=== PATIENT | male | born 1970 | race African-American/Black ===

== ENCOUNTER 2018-09-28 14:14 | Inpatient (IN) | payer MEDICARE, MEDICAID ==
[~2018-09-28 14:14] MED LIST: ISOVUE-370 76%-LOCM 1 ML ONE; Iopamidol 370 76% 50 ML VIAL FS ONE
[2018-09-28] MEDS ORDERED: Morphine 4 MG/ML VIAL ONE (14:50)
[2018-09-28] MEDS ORDERED: Ondansetron PF 4 MG/2 ML Vial ONE (14:50)
[2018-09-28 15:22] LABS: Mean Corpuscular HGB CONC 29.8 g/dL (32.0-36.0); Mean Corpuscular Hemoglobin 25.2 pg (27.0-31.0); Mean Corpuscular Volume 84.6 fL (78.0-98.0); Mean Platelet Volume 7.6 fL (7.4-10.4); Platelet Count 583 thou/uL (130-400); RBC Distribution Width 16.5 % (11.5-14.5); Red Blood Cell (RBC) Count 4.78 mill/uL (4.70-6.10); White Blood Cell (WBC) Count 20.8 thou/uL (4.8-10.8)
[2018-09-28 15:40] LABS: ALT (SGPT) 14 U/L (8-55); AST (SGOT) 8 U/L (5-34); Albumin 3.9 g/dL (3.5-5.0); Alkaline Phosphatase 71 U/L (40-150); Anion Gap 19 mmol/L (10-20); BUN (Urea Nitrogen) 29 mg/dL (8.9-20.6); Bilirubin, Total Less than 0.2 mg/dL (0.2-1.2); Calc. Creatinine Clearance 0 mL/min (70-130); Calcium 9.9 mg/dL (7.8-10.44); Carbon Dioxide 27 mmol/L (22-29); Chloride 103 mmol/L (98-107); Estimated GFR-MDRD 90; Glucose 146 mg/dL (70-105); Lipase Less than 4 U/L (8-78); Potassium 4.3 mmol/L (3.5-5.1); Protein, Total 8.9 g/dL (6.0-8.3); Sodium 145 mmol/L (136-145)
[2018-09-28] MEDS ORDERED: Piperacillin/Tazobactam 3.375 GM VIAL ONE (15:48)
[2018-09-28 15:49] LABS: Bilirubin Negative (Negative); Blood, Urine Small (Negative); Clarity TURBID (Clear); Glucose, Urine (Dipstick) Negative (Negative); Leukocyte Moderate (Negative); Nitrite Negative (Negative); Protein, Urine (Dipstick) 100 mg/dL (Neg-Trace); Specific Gravity, Urine 1.022 (1.002-1.036); Urobilinogen 0.2 mg/dL (0.2-1.0)
[2018-09-28 15:50] LABS: Bacteria/HPF 4+ HPF (None Seen); Hyaline Casts/LPF 0-3 HYALINE CAST LPF (0-3 Hyaline); Pathc Cast-AUWi Flag 0.29 (0-2.49); RBC/HPF 0-3 HPF (0-3); Squamous Epithelial 0-3 HPF (0-3)
[2018-09-28 15:58] LABS: Anisocytosis SLIGHT = 6-15 cells (100X) (0-5/hpf); Band 3 % (5-11); Hypochromia SLIGHT = 6-15 cells (100X) (0-5/hpf); Lymphocytes 4 % (21-51); MDiff Complete? YES; Monocytes 3 % (0-10); Neutrophil 90 % (42-75); PLT Morphology Comment Appears Increased; Target Cells SLIGHT = 2-5 cells (100X) (0-1/hpf)
[2018-09-28 16:38] LABS: Lactate 4.13 mmol/L (0.50-2.20)
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
[2018-09-28] MEDS ORDERED: Benzocaine 20% Spray 60 ML CAN ONE (18:47)
[2018-09-28] MEDS ORDERED: Lidocaine 2% Jelly 5 ML TUBE ONE (18:48)
[2018-09-28] MEDS ORDERED: Lidocaine Viscous Sol 2% 15 ml UD Cup ONE (18:49)
[2018-09-28 19:18] LABS: Lactic Acid 1.4 mmol/L (0.5-2.2)
[2018-09-28] MEDS ORDERED: Ondansetron PF 4 MG/2 ML Vial IVP PRN (20:11)
[2018-09-28] MEDS ORDERED: hydrALAZINE 20 MG/ML VIAL SLOW IVP PRN (20:11)
[2018-09-28] MEDS ORDERED: Lorazepam 2 MG/ML VIAL SLOW IVP PRN (20:11)
[2018-09-28] MEDS ORDERED: Acetaminophen 1,000 MG in Premix Bag 1 BAG IVPB PRN (20:13)
[2018-09-28] MEDS ORDERED: Lactated Ringer's 1,000 ML IV SCH (20:30)
[2018-09-28 20:33] LABS: Lactic Acid 1.4 mmol/L (0.5-2.2)
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
[2018-09-28] MEDS: Sodium Chloride 0.45% 1,000 ML IV SCH (23:13)
[2018-09-28] MEDS: Enoxaparin Sodium 40 MG/0.4 ML SYRINGE SC SCH (23:13)
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
[2018-09-29] MEDS: Sodium Chloride 0.45% 1,000 ML IV SCH ×2 (05:54→13:44)
[2018-09-29 06:30] LABS: ALT (SGPT) 9 U/L (8-55); AST (SGOT) 8 U/L (5-34); Albumin 2.8 g/dL (3.5-5.0); Alkaline Phosphatase 53 U/L (40-150); Anion Gap 10 mmol/L (10-20); BUN (Urea Nitrogen) 22 mg/dL (8.9-20.6); Bilirubin, Total 0.2 mg/dL (0.2-1.2); Calc. Creatinine Clearance 111 mL/min (70-130); Calcium 8.3 mg/dL (7.8-10.44); Carbon Dioxide 36 mmol/L (22-29); Chloride 105 mmol/L (98-107); Estimated GFR-MDRD Greater than 90; Globulin 3.7 g/dL (2.4-3.5); Glucose 100 mg/dL (70-105); Potassium 3.5 mmol/L (3.5-5.1); Protein, Total 6.5 g/dL (6.0-8.3); Sodium 147 mmol/L (136-145)
[2018-09-29 06:41] LABS: #Eosinphils 0.1 thou/uL (0.0-0.7); #Lymphocytes 1.9 thou/uL (1.20-3.40); #Monocytes 1.1 thou/uL (0.11-0.59); #Neutrophils 12.9 thou/uL (1.40-6.50); %Basophils 0.2 % (0.0-1.0); %Eosinophils 0.5 % (0.0-10.0); %Monocytes 7.1 % (0.0-10.0); %Neutrophils 80.2 % (42.0-75.0); Hemoglobin 8.9 g/dL (14.0-18.0); Mean Corpuscular HGB CONC 29.8 g/dL (32.0-36.0); Mean Corpuscular Hemoglobin 24.6 pg (27.0-31.0); Mean Corpuscular Volume 82.7 fL (78.0-98.0); Mean Platelet Volume 7.4 fL (7.4-10.4); Platelet Count 551 thou/uL (130-400); RBC Distribution Width 16.2 % (11.5-14.5); Red Blood Cell (RBC) Count 3.61 mill/uL (4.70-6.10); White Blood Cell (WBC) Count 16.1 thou/uL (4.8-10.8)
[2018-09-29] MEDS: Pantoprazole 40 MG VIAL IVP SCH (08:13)
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
[2018-09-29] MEDS ORDERED: Vancomycin HCl 1 GM in Premix Bag 1 BAG IVPB SCH (13:00)
[2018-09-29 13:52] VITALS: BMI 19.4
[2018-09-29] MEDS: Piperacillin/Tazobactam 3.375 GM in Sodium Chloride 0.9% 100 ML IVPB SCH (17:40)
--- NOTE | 2018-09-29 21:26 | PRG ---
DATE OF SERVICE: 09/29/2018 Mr. Webber is doing well today. OBJECTIVE: VITAL SIGNS: 97.6, 87, 131/81. He feels better after having the NG tube placed. NG tube has evacua tien 3.1 liters overnight. Urine output 550 mL. LUNGS: Clear to auscultation. CARDIAC: Regular rate and rhythm without murmur. ABDOMEN: Softer, much less distended, diminished bowel sounds. X-rays abdominal revealed resolution of small bowel distention. LABORATORY: White count is decreased to 16 from 20,000, hemoglobin stable at 8.9 after hydration. S odium 147, potassium 3.5, BUN 22 down from 29, after hydration. Lactic acid has normalized. Urine c ultures revealed gram negative jil, nonhemolytic strep and blood cultures 2 of 2 Staphylococcus aureu s. He has been started on Zosyn and vancomycin ordered after acknowledgement of positive GPC bactere filomena. ASSESSMENT AND PLAN: 1. Suspect ileus secondary to urinary tract infection, improving. No surgical indication at this ti me. Continue NG tube. Hopefully, can remove tomorrow. 2. Neurogenic bladder with in and out catheterization as required. Patient is performing home Soni catheter present. Await ID identification to adjust antibiotics. Consider bacteremia and neurogeni c bladder with history of difficult to control urinary tract infections. We will consult Infectious Disease, Dr. Maria. We will await his recommendations as far as antibiotics. Await GI function and consider removal of nasogastric tube tomorrow, depending on output and GI function. I do not think G astrografin small bowel follow through as necessary. 3. Chronic decubitus problems with sacral wounds, chronic. No immediate indication. Await In fectious Disease input.
[2018-09-29] MEDS: Enoxaparin Sodium 40 MG/0.4 ML SYRINGE SC SCH (21:38)
[2018-09-29] MEDS: Vancomycin HCl 1 GM in Premix Bag 1 BAG IVPB SCH (21:38)
[2018-09-30] MEDS: Piperacillin/Tazobactam 3.375 GM in Sodium Chloride 0.9% 100 ML IVPB SCH ×4 (00:41→17:26)
[2018-09-30] MEDS ORDERED: Vancomycin HCl 1 GM in Premix Bag 1 BAG IVPB SCH (02:00)
[2018-09-30] MEDS: Sodium Chloride 0.45% 1,000 ML IV SCH ×3 (04:57→13:23)
[2018-09-30] MEDS: Vancomycin HCl 1 GM in Premix Bag 1 BAG IVPB SCH ×4 (04:57→21:32)
[2018-09-30 05:51] LABS: Anion Gap 12 mmol/L (10-20); BUN (Urea Nitrogen) 18 mg/dL (8.9-20.6); Calc. Creatinine Clearance 109 mL/min (70-130); Calcium 7.8 mg/dL (7.8-10.44); Carbon Dioxide 31 mmol/L (22-29); Chloride 105 mmol/L (98-107); Estimated GFR-MDRD Greater than 90; Glucose 81 mg/dL (70-105); Potassium 3.3 mmol/L (3.5-5.1); Sodium 145 mmol/L (136-145)
[2018-09-30 05:54] LABS: #Basophils 0.1 thou/uL (0.0-0.2); #Eosinphils 0.2 thou/uL (0.0-0.7); #Lymphocytes 2.1 thou/uL (1.20-3.40); #Neutrophils 5.8 thou/uL (1.40-6.50); %Basophils 0.9 % (0.0-1.0); %Eosinophils 1.9 % (0.0-10.0); %Lymphocytes 22.6 % (21.0-51.0); %Monocytes 11.2 % (0.0-10.0); %Neutrophils 63.4 % (42.0-75.0); Mean Corpuscular HGB CONC 29.2 g/dL (32.0-36.0); Mean Corpuscular Hemoglobin 24.3 pg (27.0-31.0); Mean Corpuscular Volume 83.4 fL (78.0-98.0); Mean Platelet Volume 7.1 fL (7.4-10.4); PLT Morphology Comment Appears Increased; Platelet Count 545 thou/uL (130-400); RBC Distribution Width 16.2 % (11.5-14.5); Red Blood Cell (RBC) Count 3.72 mill/uL (4.70-6.10); White Blood Cell (WBC) Count 9.2 thou/uL (4.8-10.8)
[2018-09-30] MEDS: Pantoprazole 40 MG VIAL IVP SCH (08:16)
[2018-09-30] MEDS ORDERED: MD-Gastroview 120 ML BOT ONE (10:40)
[2018-09-30 14:30] LABS: Vancomycin, Trough 18.1 ug/mL
--- NOTE | 2018-09-30 14:33 | RAD ---
SMALL BOWEL SERIES: HISTORY: Small bowel obstruction. FINDINGS: The kier boiler film demonstrates contrast in the transverse and right colon. A nasogastric tube is seen w ith tip in the distal stomach. Serial imaging was performed after installation of Gastrografin in the stomach NG tube. The small pramod wel loops are not abnormally dilated. There is normal transit of contrast of the small bowel loops i nto the colon and rectum by 2-1/2 hours. IMPRESSION: No evidence of high-grade bowel obstruction. POS: [facility]
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
[2018-09-30] MEDS: Enoxaparin Sodium 40 MG/0.4 ML SYRINGE SC SCH (21:32)
[2018-09-30] MEDS: clonazePAM 1 MG TAB PO PRN (22:12)
[2018-10-01] MEDS: Piperacillin/Tazobactam 3.375 GM in Sodium Chloride 0.9% 100 ML IVPB SCH ×4 (02:18→20:38)
[2018-10-01] MEDS: Sodium Chloride 0.45% 1,000 ML IV SCH ×2 (07:50→09:49)
[2018-10-01] MEDS: Vancomycin HCl 1 GM in Premix Bag 1 BAG IVPB SCH ×2 (07:56→14:51)
[2018-10-01] MEDS: Polyethylene Glycol 3350 17 GM Packet PO SCH (09:01)
[2018-10-01] MEDS: Pantoprazole 40 MG VIAL IVP SCH (09:01)
[2018-10-01] MEDS: clonazePAM 1 MG TAB PO PRN ×2 (10:10→21:07)
--- NOTE | 2018-10-01 11:58 | PQF ---
CLINICAL DOCUMENTATION IMPROVEMENT CLARIFICATION FORM: ICD-10 Updated PLEASE DO AN ADDENDUM TO THE PROGRESS NOTE WITH ANY DOCUMENTATION UPDATES OR ADDITIONS AND CARRY THROUGH TO DC SUMMARY. THANK YOU. DATE: 10/01/18 ATTN: Dr. Og Please exercise your independent, professional judgment in responding to the clarification form. Clinical indicators are provided on the bottom of this form for your review Please check appropriate box(s): [ ] Urinary Tract Infection related to intermittent self-catheterization [ ] Urinary Tract Infection not related to intermittent self-catheterization. [ ] Urinary Tract Infection related to: [ ] Other diagnosis [ ] Unable to determine In addition, please specify: Present on Admission (POA): [ ] Yes [ ] No [ ] Unable to determine For continuity of documentation, please document condition throughout progress notes and discharge summary. Thank You. CLINICAL INDICATORS - SIGNS / SYMPTOMS / LABS PN 09/29: URINE CULTURES REVEALED GRAM NEGATIVE CARMINE, NONHEMOLYTIC STREP PN 09/29: SUSPECT ILEUS SECONDARY TO URINARY TRACT INFECTION, IMPROVING. RISKS: H&P 09/28: PARAPLEGIC. PN 09/29: NEUROGENIC BLADDER WITH IN & OUT CATHETERIZATION REQUIRED. CHRONIC DECUBITUS PROBLEMS. ID CONSULT 09/30: THE PT MANAGES HIS NEUROGENIC BLADDER W/ THIS INTERMITTENT SELF- CATHETERIZATION, USUALLY 5-6 TIMES A DAY. TREATMENT: ORDER 09/29 FOR IV ZOSYN AND IV VANCOMYCIN ID CONSULT ORDER 10/01: URINE CATH : STRAIGHT PRN Thank you, Kimberley (This form is maintained as a part of the permanent medical record) 2014 [employer] All Rights Reserved Kimberley Sims RN, BSN [email or web address] Office: [phone] [facility]
--- NOTE | 2018-10-01 13:55 | PRG ---
DATE OF SERVICE: 10/01/2018 Иван Webber is tolerating his diet. He is having bowel movements. He most likely has an ileus sec ondary to urinary tract infection. Apparently, the patient is not caring well for himself at home. He exhibits signs of malnourishment. Nursing and manager of case management have made efforts to contact the patien t's mother. Efforts are being made to assign him to an LTAC or assisted care living due to his deep decubiti, malnourishment, inadequate mobility, lack of in and out self-caths, questionable . Als o, I am waiting on Dr. Maria. We also are awaiting cultures to define sensitivities for his urine cu lture to determine most appropriate care, oral or IV antibiotics. The patient had a positive bactere filomena, probably a contaminant. Awaiting Dr. Maria' final assessment.
[2018-10-01 14:21] LABS: Vancomycin, Trough 33.9 ug/mL
[2018-10-01] MEDS: Enoxaparin Sodium 40 MG/0.4 ML SYRINGE SC SCH (20:38)
[2018-10-02] MEDS: Sodium Chloride 0.45% 1,000 ML IV SCH ×3 (00:32→17:05)
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
[2018-10-02 01:30] LABS: Vancomycin, Random 20.1 ug/mL (See Comment)
[2018-10-02] MEDS ORDERED: Vancomycin HCl 1 GM in Premix Bag 1 BAG IVPB SCH (02:00)
[2018-10-02] MEDS: Piperacillin/Tazobactam 3.375 GM in Sodium Chloride 0.9% 100 ML IVPB SCH ×4 (02:16→20:43)
[2018-10-02] MEDS: Vancomycin HCl 1 GM in Premix Bag 1 BAG IVPB SCH ×2 (04:43→17:16)
[2018-10-02] MEDS: Polyethylene Glycol 3350 17 GM Packet PO SCH (07:59)
[2018-10-02] MEDS: Pantoprazole 40 MG VIAL IVP SCH (07:59)
--- NOTE | 2018-10-02 12:24 | PQF ---
CLINICAL DOCUMENTATION IMPROVEMENT CLARIFICATION FORM: ICD-10 Updated PLEASE DO AN ADDENDUM TO THE PROGRESS NOTE WITH ANY DOCUMENTATION UPDATES OR ADDITIONS AND CARRY THROUGH TO DC SUMMARY. THANK YOU. DATE: 10/01/18 ATTN: Dr. Og Please exercise your independent, professional judgment in responding to the clarification form. Clinical indicators are provided on the bottom of this form for your review Please check appropriate box(s): [ ] Urinary Tract Infection related to intermittent self-catheterization [ ] Urinary Tract Infection not related to intermittent self-catheterization. [ ] Urinary Tract Infection related to: [ ] Other diagnosis [ ] Unable to determine In addition, please specify: Present on Admission (POA): [ ] Yes [ ] No [ ] Unable to determine For continuity of documentation, please document condition throughout progress notes and discharge summary. Thank You. CLINICAL INDICATORS - SIGNS / SYMPTOMS / LABS PN 09/29: URINE CULTURES REVEALED GRAM NEGATIVE CARMINE, NONHEMOLYTIC STREP PN 09/29: SUSPECT ILEUS SECONDARY TO URINARY TRACT INFECTION, IMPROVING. RISKS: H&P 09/28: PARAPLEGIC. PN 09/29: NEUROGENIC BLADDER WITH IN & OUT CATHETERIZATION REQUIRED. CHRONIC DECUBITUS PROBLEMS. ID CONSULT 09/30: THE PT MANAGES HIS NEUROGENIC BLADDER WITH THIS INTERMITTENT SELF-CATHETERIZATION, USUALLY 5-6 TIMES A DAY. TREATMENT: ORDER 09/29 FOR IV ZOSYN AND IV VANCOMYCIN ID CONSULT ORDER 10/01: URINE CATH : STRAIGHT PRN (This form is maintained as a part of the permanent medical record) 2014 [employer] All Rights Reserved Kimberley Sims RN, BSN [email or web address] Office: [phone] [facility]
[2018-10-02] MEDS: Enoxaparin Sodium 40 MG/0.4 ML SYRINGE SC SCH (20:44)
[2018-10-02] MEDS: clonazePAM 1 MG TAB PO PRN (20:52)
[2018-10-03] MEDS: Piperacillin/Tazobactam 3.375 GM in Sodium Chloride 0.9% 100 ML IVPB SCH ×2 (01:25→09:08)
[2018-10-03] MEDS: Vancomycin HCl 1 GM in Premix Bag 1 BAG IVPB SCH (04:37)
[2018-10-03] MEDS: clonazePAM 1 MG TAB PO PRN ×2 (05:45→11:12)
[2018-10-03] MEDS: Polyethylene Glycol 3350 17 GM Packet PO SCH (09:08)
[2018-10-03 10:59] VITALS: BP 151/98; TEMP 98.7
--- NOTE | 2018-10-03 13:48 | PRG ---
DATE OF SERVICE: 10/03/2018 SUBJECTIVE: Иван Webber is doing well today. He has tolerated his diet. Dr. Maria has decided to put him on meropenem 1 gram q.8 hours through a PICC line. The patient was reluctant to have the PI CC line, but after further discussion, educating him as to his UTI causing his ileus, and the zachio holdenle significant positive blood cultures, he agreed and PICC line was placed. OBJECTIVE: LUNGS: Clear to auscultation. CARDIAC: Regular rate and rhythm without murmur, rub, or gallop. ABDOMEN: Soft, nontender. PLAN: Transfer to LTAC today to resume meropenem and work on reconditioning and education as far as straight cathing and address his decubitus ulcers and living situation.
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
--- NOTE | 2018-10-03 16:13 | SPC ---
ULTRASOUND GUIDED LEFT UPPER EXTREMITY PICC PLACEMENT: DATE: 10/03/2018. HISTORY: In need of vascular access. FINDINGS: Informed consent obtained prior to the procedure. Left antecubital fossa is prepped and draped in no rmal sterile fashion. The skin overlying the left basilic vein is anesthetized with 1% buffered Lido wolf. With sonographic guidance, vascular access is obtained via the left basilic vein and an 0.018 wire is advanced to the IVC and then subsequently retracted to the cavoatrial junction with an intra vascular length calculated at 45 cm. The PICC was cut accordingly. The needle was removed and repla jose with a peelaway sheath. The PICC is advanced over the wire. The wire and peelaway sheath were r emoved. The tip of the catheter overlies the cavoatrial junction. The port flushes well and the cat heter is ready for use. IMPRESSION: Successful ultrasound-guided left upper extremity PICC placement as above. POS: [facility]
--- NOTE | 2018-10-04 23:07 | EKG ---
Test Reason : Blood Pressure : / mmHG Vent. Rate : 111 BPM Atrial Rate : 111 BPM P-R Int : 116 ms QRS Dur : 084 ms QT Int : 342 ms P-R-T Axes : 072 081 045 degrees QTc Int : 465 ms Sinus tachycardia Otherwise normal ECG Confirmed by RAFAEL CHRISTINE ([id number]), book or script editor ALISON FONTAINE ([id number]) on 10/04/2018 11:06:56 PM Referred By: Confirmed By:RAFAEL CHRISTINE
--- NOTE | 2018-10-07 08:51 | PQF ---
ANDRES ZIMMERMAN RICHARD D MD [id number] CLINICAL DOCUMENTATION IMPROVEMENT CLARIFICATION FORM: ICD-10 Updated PLEASE DO AN ADDENDUM TO THE PROGRESS NOTE WITH ANY DOCUMENTATION UPDATES OR ADDITIONS AND CARRY THROUGH TO DC SUMMARY. THANK YOU. DATE: 10/01/18 ATTN: Dr. Og Please exercise your independent, professional judgment in responding to the clarification form. Clinical indicators are provided on the bottom of this form for your review Please check appropriate box(s): [ ] Urinary Tract Infection related to intermittent self-catheterization [ ] Urinary Tract Infection not related to intermittent self-catheterization. [ ] Urinary Tract Infection related to: [ ] Other diagnosis [ ] Unable to determine In addition, please specify: Present on Admission (POA): [ ] Yes [ ] No [ ] Unable to determine For continuity of documentation, please document condition throughout progress notes and discharge summary. Thank You. CLINICAL INDICATORS - SIGNS / SYMPTOMS / LABS PN 09/29: URINE CULTURES REVEALED GRAM NEGATIVE CARMINE, NONHEMOLYTIC STREP PN 09/29: SUSPECT ILEUS SECONDARY TO URINARY TRACT INFECTION, IMPROVING. RISKS: H&P 09/28: PARAPLEGIC. PN 09/29: NEUROGENIC BLADDER WITH IN & OUT CATHETERIZATION REQUIRED. CHRONIC DECUBITUS PROBLEMS. ID CONSULT 09/30: THE PT MANAGES HIS NEUROGENIC BLADDER WITH THIS INTERMITTENT SELF-CATHETERIZATION, USUALLY 5-6 TIMES A DAY. TREATMENT: ORDER 09/29 FOR IV ZOSYN AND IV VANCOMYCIN ID CONSULT ORDER 10/01: URINE CATH : STRAIGHT PRN THANK YOU, KIMBERLEY (This form is maintained as a part of the permanent medical record) 2015 [employer], [employer]. All Rights Reserved Kimberley Sims RN, BSN [email or web address] Office: [phone] [facility]
== END 2018-10-03 12:54 | DRG 698 ==
LOC: ERS 14:14 → SJJU 18:10
PROVIDERS: ADMIT Specialist; ATTEND Specialist
PROC: 02HV33Z Insertion of Infusion Device into Superior Vena Cava, Percutaneous Approach (ICD-10-PCS; principal; 2018-10-03)
DX: T83.511A Infection and inflammatory reaction due to indwelling urethral catheter, initial encounter (principal); L89.313 Pressure ulcer of right buttock, stage 3; L89.323 Pressure ulcer of left buttock, stage 3; K56.7 Ileus, unspecified; G82.21 Paraplegia, complete; E46 Unspecified protein-calorie malnutrition; Z68.1 Body mass index [BMI] 19.9 or less, adult; N39.0 Urinary tract infection, site not specified; L89.151 Pressure ulcer of sacral region, stage 1; B95.7 Other staphylococcus as the cause of diseases classified elsewhere; B95.4 Other streptococcus as the cause of diseases classified elsewhere; E86.0 Dehydration; N31.9 Neuromuscular dysfunction of bladder, unspecified; F79 Unspecified intellectual disabilities; Y84.6 Urinary catheterization as the cause of abnormal reaction of the patient, or of later complication, without mention of misadventure at the time of the procedure
CPT/HCPCS: 36415; 36569; 51702; 71045; 74019; 74177; 74250; 80048; 80053; 80202; 81003; 81015; 83605; 83690; 84134; 85025; 87040; 87077; 87086; 87149; 87186; 93005; 96361; 96365; 96375; C1751; C9113; G8978-GP-CJ; G8979-GP-CI; G8987-GO-CJ; G8988-GO-CI; J1650; J2270; J2405; J2543; J3370; J7050; J7120

== ENCOUNTER 2019-08-07 15:27 | Emergency (ER) | payer MEDICARE, MEDICAID | END 2019-08-07 18:35 | disposition home or self-care (01) | LOC: ERS 15:27 | DX: H10.021 Other mucopurulent conjunctivitis, right eye (principal); I10 Essential (primary) hypertension; F41.9 Anxiety disorder, unspecified; F17.210 Nicotine dependence, cigarettes, uncomplicated; Z87.440 Personal history of urinary (tract) infections; Z79.899 Other long term (current) drug therapy | CPT/HCPCS: 99282 ==

== ENCOUNTER 2019-09-10 15:50 | Outpatient (CLI) | payer MEDICARE, MEDICAID ==
[2019-09-10] MEDS ORDERED: Sodium Chloride 0.9% 15 ML NEB ONE (18:00)
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
== END 2019-09-10 15:51 | disposition home or self-care (01) ==
LOC: WCC 15:50
PROVIDERS: ATTEND Family Medicine
DX: L89.321 Pressure ulcer of left buttock, stage 1 (principal)
CPT/HCPCS: 11042; 99203; A4218; G0463

== ENCOUNTER 2021-09-14 13:22 | Inpatient (IN) | payer MEDICARE, MEDICAID ==
[2021-09-14] MEDS ORDERED: cefTRIAXone\\ROCEPHIN 2 GM VIAL ONE (13:42)
[2021-09-14 14:31] LABS: Hemoglobin 13.4 g/dL (14.0-18.0); Mean Corpuscular HGB CONC 30.9 g/dL (32.0-36.0); Mean Corpuscular Hemoglobin 30.5 pg (27.0-31.0); Mean Corpuscular Volume 98.6 fL (78.0-98.0); Mean Platelet Volume 7.5 fL (7.4-10.4); Platelet Count 266 thou/uL (130-400); Red Blood Cell (RBC) Count 4.41 mill/uL (4.70-6.10); White Blood Cell (WBC) Count 12.1 thou/uL (4.8-10.8)
[2021-09-14 14:42] LABS: INR-International Normal Ratio 1.2; Prothrombin Time 15.3 sec (12.0-14.7)
[2021-09-14 14:43] LABS: PTT 39.6 sec (22.9-36.1)
[2021-09-14 14:48] LABS: Band 2 % (5-11); Lymphocytes 8 % (21-51); MDiff Complete? YES; Monocytes 6 % (0-10); Neutrophil 84 % (42-75); Platelet Morphology Comment Appears Adequate; RBC Morphology Normal
[2021-09-14 14:56] LABS: ALT (SGPT) 12 U/L (8-55); AST (SGOT) 13 U/L (5-34); Albumin 2.9 g/dL (3.5-5.0); Alkaline Phosphatase 81 U/L (40-110); Anion Gap 11 mmol/L (10-20); BUN (Urea Nitrogen) 11 mg/dL (8.9-20.6); Bilirubin, Total 0.4 mg/dL (0.2-1.2); Calc. Creatinine Clearance 0 mL/min (70-130); Calcium 7.7 mg/dL (7.8-10.44); Carbon Dioxide 27 mmol/L (22-29); Chloride 102 mmol/L (98-107); Globulin 2.7 g/dL (2.4-3.5); Glucose 167 mg/dL (70-105); Potassium 3.7 mmol/L (3.5-5.1); Protein, Total 5.6 g/dL (6.0-8.3); Sodium 136 mmol/L (136-145)
[2021-09-14 15:08] LABS: Bacteria/HPF 4+ HPF (None Seen); Bilirubin Negative (Negative); Blood, Urine 3+ (Negative); Clarity Turbid (Clear); Glucose, Urine (Dipstick) Normal (Negative); Ketone, Urine Negative (Negative); Leukocyte 500 Leu/uL (Negative); Nitrite Negative (Negative); Protein, Urine (Dipstick) 100 mg/dL (Neg-Trace); Specific Gravity, Urine 1.017 (1.002-1.036); Squamous Epithelial 0-3 HPF (0-3); Urobilinogen Normal mg/dL (Less than 2); WBC/HPF Greater than 50 HPF (0-3)
[2021-09-14 15:09] LABS: RBC/HPF 21-50 HPF (0-3)
[2021-09-14] MEDS ORDERED: Senokot S 8.6-50 MG TAB PO PRN (16:11)
[2021-09-14] MEDS ORDERED: Ondansetron PF 4 MG/2 ML Vial IVP PRN (16:11)
[2021-09-14] MEDS ORDERED: Enoxaparin Sodium 40 MG/0.4 ML SYRINGE SC SCH (16:15)
[2021-09-14] MEDS ORDERED: hydrALAZINE 20 MG/ML VIAL SLOW IVP PRN (16:45)
[2021-09-14] MEDS ORDERED: MEROPENEM 1 GM/50 ML 1 GM in Premix Bag 1 BAG IVPB SCH ×2 (17:00→18:45)
[2021-09-14 17:26] LABS: Lactic Acid 1.4 mmol/L (0.5-2.2)
[2021-09-14 17:53] VITALS: BMI 21.5
[2021-09-14] MEDS: MEROPENEM 1 GM/50 ML 1 GM in Premix Bag 1 BAG IVPB SCH ×2 (18:00→18:01)
[2021-09-14] MEDS: Acetaminophen 325 MG TAB PO PRN ×2 (18:05→22:35)
[2021-09-14] MEDS: Sodium Chloride 0.9% 1,000 ML IV SCH (18:06)
[2021-09-14] MEDS ORDERED: FLU VACC QS2021-22(6MOS UP)/PF 60 MCG/0.5 ML SYRINGE IM ONE (18:30)
[2021-09-14] MEDS ORDERED: Meropenem 1 GM in Sodium Chloride 0.9% 100 ML IVPB SCH (22:00)
[2021-09-15] MEDS ORDERED: MEROPENEM 1 GM/50 ML 1 GM in Premix Bag 1 BAG IVPB SCH (02:00)
[2021-09-15] MEDS: Sodium Chloride 0.9% 1,000 ML IV SCH ×3 (03:24→14:50)
[2021-09-15] MEDS: Acetaminophen 325 MG TAB PO PRN ×2 (04:19→16:20)
[2021-09-15] MEDS: MEROPENEM 1 GM/50 ML 1 GM in Premix Bag 1 BAG IVPB SCH ×3 (04:23→19:46)
[2021-09-15 07:07] LABS: Mean Corpuscular Hemoglobin 32.6 pg (27.0-31.0); Mean Corpuscular Volume 98.6 fL (78.0-98.0); Mean Platelet Volume 7.4 fL (7.4-10.4); Platelet Count 252 thou/uL (130-400); RBC Distribution Width 13.1 % (11.5-14.5); Red Blood Cell (RBC) Count 3.98 mill/uL (4.70-6.10)
[2021-09-15 07:30] LABS: Anion Gap 13 mmol/L (10-20); BUN (Urea Nitrogen) 11 mg/dL (8.9-20.6); Calc. Creatinine Clearance 109 mL/min (70-130); Calcium 7.7 mg/dL (7.8-10.44); Carbon Dioxide 22 mmol/L (22-29); Chloride 108 mmol/L (98-107); Glucose 110 mg/dL (70-105); Potassium 4.3 mmol/L (3.5-5.1); Sodium 139 mmol/L (136-145)
[2021-09-15 08:18] LABS: Band 5 % (5-11); Eosinophils 3 % (0-10); Lymphocytes 17 % (21-51); MDiff Complete? YES; Monocytes 11 % (0-10); Neutrophil 64 % (42-75); RBC Morphology Normal
[2021-09-15] MEDS: Enoxaparin Sodium 40 MG/0.4 ML SYRINGE SC SCH (08:38)
[2021-09-15] MEDS: Polyethylene Glycol 3350 17 GM Packet PO SCH (08:39)
[2021-09-15] MEDS ORDERED: Labetalol HCl 100 MG/20 ML VIAL SLOW IVP PRN (11:39)
[2021-09-15] MEDS ORDERED: Amlodipine 5 MG TAB PO SCH (11:45)
[2021-09-15 12:30] LABS: SARS-CoV-2 PCR by NAA Not Detected (NotDetected)
[2021-09-15] MEDS: clonazePAM 1 MG TAB PO SCH (22:16)
[2021-09-16] MEDS: Bisacodyl 10 MG SUPP PR SCH (00:01)
[2021-09-16] MEDS: Acetaminophen 325 MG TAB PO PRN (00:08)
[2021-09-16] MEDS: Sodium Chloride 0.9% 1,000 ML IV SCH ×6 (00:11→22:10)
[2021-09-16] MEDS: MEROPENEM 1 GM/50 ML 1 GM in Premix Bag 1 BAG IVPB SCH ×3 (05:07→22:04)
[2021-09-16 06:58] LABS: Band 10 % (5-11); Hemoglobin 12.7 g/dL (14.0-18.0); Hypochromia SLIGHT = 6-15 cells (100X) (0-5/hpf); Lymphocytes 15 % (21-51); MDiff Complete? YES; Mean Corpuscular HGB CONC 31.6 g/dL (32.0-36.0); Mean Corpuscular Hemoglobin 31.3 pg (27.0-31.0); Mean Corpuscular Volume 98.9 fL (78.0-98.0); Mean Platelet Volume 7.6 fL (7.4-10.4); Monocytes 18 % (0-10); Neutrophil 55 % (42-75); Platelet Count 277 thou/uL (130-400); Platelet Morphology Comment Appears Adequate; RBC Distribution Width 13.2 % (11.5-14.5); Reactive Lymphocytes 2 % (0-10); Red Blood Cell (RBC) Count 4.06 mill/uL (4.70-6.10); White Blood Cell (WBC) Count 9.8 thou/uL (4.8-10.8)
[2021-09-16 07:07] LABS: Anion Gap 8 mmol/L (10-20); BUN (Urea Nitrogen) 10 mg/dL (8.9-20.6); Calc. Creatinine Clearance 117 mL/min (70-130); Calcium 7.9 mg/dL (7.8-10.44); Carbon Dioxide 25 mmol/L (22-29); Chloride 109 mmol/L (98-107); Glucose 72 mg/dL (70-105); Potassium 4.4 mmol/L (3.5-5.1); Sodium 138 mmol/L (136-145)
[2021-09-16] MEDS: Enoxaparin Sodium 40 MG/0.4 ML SYRINGE SC SCH (08:34)
[2021-09-16] MEDS: Polyethylene Glycol 3350 17 GM Packet PO SCH (08:34)
[2021-09-16] MEDS: clonazePAM 1 MG TAB PO SCH ×3 (08:35→22:03)
[2021-09-17] MEDS: hydrALAZINE 20 MG/ML VIAL SLOW IVP PRN (05:13)
[2021-09-17] MEDS: MEROPENEM 1 GM/50 ML 1 GM in Premix Bag 1 BAG IVPB SCH ×3 (05:13→22:36)
[2021-09-17 06:34] LABS: Anion Gap 12 mmol/L (10-20); BUN (Urea Nitrogen) 10 mg/dL (8.9-20.6); Calc. Creatinine Clearance 117 mL/min (70-130); Calcium 7.9 mg/dL (7.8-10.44); Carbon Dioxide 25 mmol/L (22-29); Chloride 107 mmol/L (98-107); Glucose 102 mg/dL (70-105); Potassium 4.5 mmol/L (3.5-5.1); Sodium 139 mmol/L (136-145)
[2021-09-17 06:58] LABS: Band 2 % (5-11); Eosinophils 4 % (0-10); Hemoglobin 12.6 g/dL (14.0-18.0); Lymphocytes 21 % (21-51); MDiff Complete? YES; Mean Corpuscular HGB CONC 32.1 g/dL (32.0-36.0); Mean Corpuscular Hemoglobin 31.4 pg (27.0-31.0); Mean Corpuscular Volume 97.6 fL (78.0-98.0); Mean Platelet Volume 7.2 fL (7.4-10.4); Monocytes 12 % (0-10); Neutrophil 57 % (42-75); Platelet Count 279 thou/uL (130-400); Platelet Morphology Comment Appears Adequate; RBC Distribution Width 13.1 % (11.5-14.5); RBC Morphology Normal; Reactive Lymphocytes 4 % (0-10); Red Blood Cell (RBC) Count 4.02 mill/uL (4.70-6.10)
[2021-09-17] MEDS: Sodium Chloride 0.9% 1,000 ML IV SCH ×2 (07:13→18:39)
[2021-09-17] MEDS: Enoxaparin Sodium 40 MG/0.4 ML SYRINGE SC SCH (09:00)
[2021-09-17] MEDS: clonazePAM 1 MG TAB PO SCH ×3 (09:00→22:37)
[2021-09-17] MEDS: Polyethylene Glycol 3350 17 GM Packet PO SCH (09:00)
[2021-09-17] MEDS: Bisacodyl 10 MG SUPP PR SCH (22:42)
[2021-09-18] MEDS: MEROPENEM 1 GM/50 ML 1 GM in Premix Bag 1 BAG IVPB SCH ×2 (04:40→12:18)
[2021-09-18 06:44] LABS: #Eosinphils 0.2 thou/uL (0.0-0.7); #Lymphocytes 2.4 thou/uL (1.20-3.40); #Neutrophils 5.5 thou/uL (1.40-6.50); %Eosinophils 2.7 % (0.0-10.0); %Lymphocytes 25.9 % (21.0-51.0); %Monocytes 10.5 % (0.0-10.0); %Neutrophils 60.8 % (42.0-75.0); Hemoglobin 13.8 g/dL (14.0-18.0); Mean Corpuscular HGB CONC 32.3 g/dL (32.0-36.0); Mean Corpuscular Hemoglobin 31.6 pg (27.0-31.0); Mean Corpuscular Volume 97.6 fL (78.0-98.0); Mean Platelet Volume 7.3 fL (7.4-10.4); Platelet Count 343 thou/uL (130-400); RBC Distribution Width 13.2 % (11.5-14.5); Red Blood Cell (RBC) Count 4.36 mill/uL (4.70-6.10); White Blood Cell (WBC) Count 9.1 thou/uL (4.8-10.8)
[2021-09-18 06:59] LABS: Anion Gap 13 mmol/L (10-20); BUN (Urea Nitrogen) 22 mg/dL (8.9-20.6); Calc. Creatinine Clearance 115 mL/min (70-130); Calcium 8.3 mg/dL (7.8-10.44); Carbon Dioxide 24 mmol/L (22-29); Chloride 107 mmol/L (98-107); Glucose 96 mg/dL (70-105); Potassium 5.2 mmol/L (3.5-5.1); Sodium 139 mmol/L (136-145)
[2021-09-18 08:33] VITALS: TEMP 97.8
[2021-09-18] MEDS: hydrALAZINE 20 MG/ML VIAL SLOW IVP PRN (09:22)
[2021-09-18] MEDS: clonazePAM 1 MG TAB PO SCH ×2 (09:23→14:48)
[2021-09-18] MEDS: Enoxaparin Sodium 40 MG/0.4 ML SYRINGE SC SCH (09:23)
[2021-09-18] MEDS: Polyethylene Glycol 3350 17 GM Packet PO SCH (09:24)
[2021-09-18 09:25] VITALS: BP 169/100
[2021-09-18] MEDS: Sodium Chloride 0.9% 1,000 ML IV SCH (12:45)
== END 2021-09-18 16:27 | disposition home or self-care (01) | DRG 698 ==
LOC: ERS 13:22 → T4-A 16:06
PROVIDERS: ADMIT Internal Medicine; ATTEND Internal Medicine
DX: T83.511A Infection and inflammatory reaction due to indwelling urethral catheter, initial encounter (principal); A41.51 Sepsis due to Escherichia coli [E. coli]; G82.20 Paraplegia, unspecified; K59.2 Neurogenic bowel, not elsewhere classified; E87.2 Acidosis; N39.0 Urinary tract infection, site not specified; L89.159 Pressure ulcer of sacral region, unspecified stage; Z20.822 Contact with and (suspected) exposure to COVID-19; I10 Essential (primary) hypertension; N31.9 Neuromuscular dysfunction of bladder, unspecified; Y84.6 Urinary catheterization as the cause of abnormal reaction of the patient, or of later complication, without mention of misadventure at the time of the procedure; Z88.2 Allergy status to sulfonamides
CPT/HCPCS: 36415; 51701; 80048; 80053; 81003; 81015; 83605; 84145; 85025; 85610; 85730; 87040; 87077; 87086; 87149; 87186; 94760; 96365; J0360; J0696; J1650; J2185; J7050; U0003; U0005

== ENCOUNTER 2022-04-16 16:08 | Emergency (ER) | payer MEDICARE, MEDICAID ==
[~2022-04-16 16:08] MED LIST changes: -ISOVUE-370 76%-LOCM 1 ML ONE; -Iopamidol 370 76% 50 ML VIAL FS ONE; +Iopamidol-370 76% 500 ML 1 ML ONE
[2022-04-16 16:42] LABS: #Eosinphils 0.2 thou/uL (0.0-0.7); #Lymphocytes 2.1 thou/uL (1.20-3.40); #Neutrophils 7.5 thou/uL (1.40-6.50); %Basophils 0.3 % (0.0-1.0); %Eosinophils 1.6 % (0.0-10.0); %Lymphocytes 19.2 % (21.0-51.0); %Monocytes 9.1 % (0.0-10.0); %Neutrophils 69.8 % (42.0-75.0); Hemoglobin 12.7 g/dL (14.0-18.0); Mean Corpuscular HGB CONC 31.8 g/dL (32.0-36.0); Mean Corpuscular Hemoglobin 31.4 pg (27.0-31.0); Mean Corpuscular Volume 98.9 fL (78.0-98.0); Mean Platelet Volume 6.3 fL (7.4-10.4); Platelet Count 465 thou/uL (130-400); RBC Distribution Width 13.3 % (11.5-14.5); Red Blood Cell (RBC) Count 4.03 mill/uL (4.70-6.10); White Blood Cell (WBC) Count 10.7 thou/uL (4.8-10.8)
[2022-04-16 17:11] LABS: ALT (SGPT) 8 U/L (8-55); AST (SGOT) 14 U/L (5-34); Albumin 3.3 g/dL (3.5-5.0); Alkaline Phosphatase 61 U/L (40-110); Anion Gap 11 mmol/L (10-20); BUN (Urea Nitrogen) 11 mg/dL (8.4-25.7); Bilirubin, Total 0.3 mg/dL (0.2-1.2); Calc. Creatinine Clearance 0 mL/min (70-130); Carbon Dioxide 35 mmol/L (22-29); Chloride 100 mmol/L (98-107); Globulin 3.8 g/dL (2.4-3.5); Glucose 102 mg/dL (70-105); Potassium 3.7 mmol/L (3.5-5.1); Protein, Total 7.1 g/dL (6.0-8.3); Sodium 142 mmol/L (136-145)
[2022-04-16] MEDS ORDERED: Famotidine/PF 20 mg/2ml Vial ONE (19:05)
[2022-04-16] MEDS ORDERED: methylPREDNISolone Sod Succ/PF 125 MG/2 ML VIAL ONE (19:05)
[2022-04-16] MEDS ORDERED: EPINEPHrine 1 MG/ML VIAL ONE (19:05)
[2022-04-16] MEDS ORDERED: diphenhydrAMINE 50 MG/ML VIAL ONE (19:05)
[2022-04-16] MEDS ORDERED: Amlodipine 5 MG TAB ONE (21:10)
== END 2022-04-17 00:34 | disposition home or self-care (01) ==
LOC: ERS 16:08
DX: L89.154 Pressure ulcer of sacral region, stage 4 (principal); T78.2XXA Anaphylactic shock, unspecified, initial encounter; I10 Essential (primary) hypertension
CPT/HCPCS: 72193; 80053; 85025; 96372; 96374; 96375; 99284; J0171; 36415; J1200; J2930; Q9967; S0028

== ENCOUNTER 2022-04-30 15:54 | Inpatient (IN) | payer MEDICARE, MEDICAID ==
[2022-04-30 16:36] LABS: #Monocytes 0.9 thou/uL (0.11-0.59); #Neutrophils 6.9 thou/uL (1.40-6.50); %Basophils 0.1 % (0.0-1.0); %Eosinophils 0.4 % (0.0-10.0); %Lymphocytes 11.5 % (21.0-51.0); %Monocytes 10.1 % (0.0-10.0); %Neutrophils 77.9 % (42.0-75.0); Hemoglobin 12.6 g/dL (14.0-18.0); Mean Corpuscular HGB CONC 30.1 g/dL (32.0-36.0); Mean Corpuscular Hemoglobin 29.8 pg (27.0-31.0); Mean Platelet Volume 6.9 fL (7.4-10.4); Platelet Count 457 thou/uL (130-400); RBC Distribution Width 13.1 % (11.5-14.5); Red Blood Cell (RBC) Count 4.22 mill/uL (4.70-6.10); White Blood Cell (WBC) Count 8.9 thou/uL (4.8-10.8)
[2022-04-30] MEDS ORDERED: Vancomycin 1 GM/200 ML BAG ONE (16:44)
[2022-04-30] MEDS ORDERED: Morphine 4 MG/ML VIAL ONE (16:44)
[2022-04-30] MEDS ORDERED: Ondansetron PF 4 MG/2 ML Vial ONE (16:44)
[2022-04-30 16:56] LABS: ALT (SGPT) 17 U/L (8-55); AST (SGOT) 23 U/L (5-34); Albumin 2.9 g/dL (3.5-5.0); Alkaline Phosphatase 70 U/L (40-110); Anion Gap 14 mmol/L (10-20); BUN (Urea Nitrogen) 19 mg/dL (8.4-25.7); Bilirubin, Total 0.2 mg/dL (0.2-1.2); Calc. Creatinine Clearance 0 mL/min (70-130); Calcium 8.7 mg/dL (7.8-10.44); Carbon Dioxide 27 mmol/L (22-29); Chloride 100 mmol/L (98-107); Globulin 4.4 g/dL (2.4-3.5); Glucose 171 mg/dL (70-105); Potassium 3.9 mmol/L (3.5-5.1); Protein, Total 7.3 g/dL (6.0-8.3); Sodium 137 mmol/L (136-145)
[2022-04-30] MEDS ORDERED: Piperacillin/Tazobactam 4.5 GM in Sodium Chloride 0.9% 100 ML IVPB SCH (17:00)
[2022-04-30] MEDS ORDERED: Piperacillin/Tazobactam 3.375 GM VIAL ONE (17:23)
[2022-04-30] MEDS ORDERED: Acetaminophen 500 MG TAB ONE (18:48)
[2022-04-30 19:31] LABS: Lactic Acid 2.5 mmol/L (0.5-2.2)
[2022-04-30] MEDS ORDERED: Senokot S 8.6-50 MG TAB PO PRN (20:24)
[2022-04-30 21:56] VITALS: BMI 21.2
[2022-04-30] MEDS: Lactated Ringer's 1,000 ML IV SCH (22:04)
[2022-04-30] MEDS: Cefepime 2 GM in Sodium Chloride 0.9% 100 ML IVPB SCH (22:08)
[2022-04-30] MEDS: Heparin 5,000 UNITS/ML VIAL SC SCH (22:11)
[2022-04-30 23:59] LABS: SARS-CoV-2 NAA Rapid Test Not Detected (NotDetected)
[2022-05-01 04:01] LABS: Bacteria/HPF None Seen HPF (None Seen); Bilirubin Negative (Negative); Blood, Urine 2+ (Negative); Clarity Extra Turbid (Clear); Glucose, Urine (Dipstick) Normal (Negative); Ketone, Urine Negative (Negative); Leukocyte 500 Leu/uL (Negative); Nitrite Negative (Negative); Protein, Urine (Dipstick) 100 mg/dL (Neg-Trace); RBC/HPF 21-50 HPF (0-3); Specific Gravity, Urine 1.017 (1.002-1.036); Urobilinogen Normal mg/dL (Less than 2); WBC/HPF Greater than 50 HPF (0-3); pH, Urine 6.5 (5.0-9.0)
[2022-05-01 04:03] LABS: Urine Culture Reflex No No
[2022-05-01 04:30] LABS: #Eosinphils 0.1 thou/uL (0.0-0.7); #Lymphocytes 1.9 thou/uL (1.20-3.40); #Monocytes 1.5 thou/uL (0.11-0.59); #Neutrophils 12.7 thou/uL (1.40-6.50); %Basophils 0.1 % (0.0-1.0); %Eosinophils 0.4 % (0.0-10.0); %Lymphocytes 11.8 % (21.0-51.0); %Monocytes 9.5 % (0.0-10.0); %Neutrophils 78.2 % (42.0-75.0); Mean Corpuscular HGB CONC 31.2 g/dL (32.0-36.0); Mean Corpuscular Hemoglobin 30.6 pg (27.0-31.0); Mean Platelet Volume 7.1 fL (7.4-10.4); Platelet Count 409 thou/uL (130-400); Red Blood Cell (RBC) Count 3.59 mill/uL (4.70-6.10); White Blood Cell (WBC) Count 16.2 thou/uL (4.8-10.8)
[2022-05-01] MEDS: Vancomycin 1 GM in Premix Bag 1 BAG IVPB SCH ×2 (04:53→17:56)
[2022-05-01 05:01] LABS: ALT (SGPT) 18 U/L (8-55); AST (SGOT) 27 U/L (5-34); Albumin 2.5 g/dL (3.5-5.0); Alkaline Phosphatase 68 U/L (40-110); Anion Gap 12 mmol/L (10-20); BUN (Urea Nitrogen) 17 mg/dL (8.4-25.7); Bilirubin, Total Less than 0.2 mg/dL (0.2-1.2); Calc. Creatinine Clearance 105 mL/min (70-130); Calcium 7.8 mg/dL (7.8-10.44); Carbon Dioxide 26 mmol/L (22-29); Chloride 105 mmol/L (98-107); Globulin 3.9 g/dL (2.4-3.5); Glucose 124 mg/dL (70-105); Protein, Total 6.4 g/dL (6.0-8.3); Sodium 139 mmol/L (136-145)
[2022-05-01] MEDS: Amlodipine 5 mg/Benazepril 20 mg CAP PO SCH (09:06)
[2022-05-01] MEDS: Cefepime 2 GM in Sodium Chloride 0.9% 100 ML IVPB SCH ×2 (09:07→20:46)
[2022-05-01] MEDS: Heparin 5,000 UNITS/ML VIAL SC SCH ×3 (09:09→19:48)
[2022-05-01] MEDS: Lactated Ringer's 1,000 ML IV SCH (11:29)
[2022-05-01] MEDS: Acetaminophen 325 MG TAB PO PRN (20:46)
[2022-05-01] MEDS: clonazePAM 1 MG TAB PO PRN (21:01)
[2022-05-02] MEDS: Morphine 2 MG/ML VIAL SLOW IVP PRN (02:00)
[2022-05-02 04:19] LABS: #Eosinphils 0.3 thou/uL (0.0-0.7); #Monocytes 1.3 thou/uL (0.11-0.59); #Neutrophils 10.2 thou/uL (1.40-6.50); %Basophils 0.3 % (0.0-1.0); %Lymphocytes 14.4 % (21.0-51.0); %Monocytes 9.2 % (0.0-10.0); %Neutrophils 74.1 % (42.0-75.0); Hemoglobin 10.4 g/dL (14.0-18.0); Mean Corpuscular HGB CONC 30.9 g/dL (32.0-36.0); Mean Corpuscular Hemoglobin 29.8 pg (27.0-31.0); Mean Corpuscular Volume 96.1 fL (78.0-98.0); Mean Platelet Volume 6.8 fL (7.4-10.4); Platelet Count 439 thou/uL (130-400); Red Blood Cell (RBC) Count 3.51 mill/uL (4.70-6.10); White Blood Cell (WBC) Count 13.8 thou/uL (4.8-10.8)
[2022-05-02 04:30] LABS: Vancomycin, Trough 10.2 ug/mL
[2022-05-02 04:36] LABS: ALT (SGPT) 14 U/L (8-55); AST (SGOT) 15 U/L (5-34); Albumin 2.3 g/dL (3.5-5.0); Alkaline Phosphatase 55 U/L (40-110); Anion Gap 9 mmol/L (10-20); BUN (Urea Nitrogen) 19 mg/dL (8.4-25.7); Bilirubin, Total Less than 0.2 mg/dL (0.2-1.2); Calc. Creatinine Clearance 109 mL/min (70-130); Calcium 7.9 mg/dL (7.8-10.44); Carbon Dioxide 28 mmol/L (22-29); Chloride 105 mmol/L (98-107); Globulin 3.7 g/dL (2.4-3.5); Glucose 116 mg/dL (70-105); Potassium 4.7 mmol/L (3.5-5.1); Sodium 137 mmol/L (136-145)
[2022-05-02] MEDS: Vancomycin 1 GM in Premix Bag 1 BAG IVPB SCH ×3 (04:40→20:16)
[2022-05-02] MEDS ORDERED: Sodium Chloride 0.9% 1,000 ML IV SCH (08:00)
[2022-05-02] MEDS: Cefepime 2 GM in Sodium Chloride 0.9% 100 ML IVPB SCH ×2 (08:34→19:39)
[2022-05-02] MEDS: Amlodipine 5 mg/Benazepril 20 mg CAP PO SCH (08:39)
[2022-05-02] MEDS: Heparin 5,000 UNITS/ML VIAL SC SCH ×3 (10:32→19:42)
[2022-05-02] MEDS: Acetaminophen 325 MG TAB PO PRN (19:49)
[2022-05-03 04:32] LABS: Vancomycin, Trough 16.8 ug/mL
[2022-05-03] MEDS: Vancomycin 1 GM in Premix Bag 1 BAG IVPB SCH ×3 (04:58→20:58)
[2022-05-03 07:33] LABS: #Eosinphils 0.4 thou/uL (0.0-0.7); #Lymphocytes 2.1 thou/uL (1.20-3.40); #Neutrophils 13.4 thou/uL (1.40-6.50); %Eosinophils 2.3 % (0.0-10.0); %Lymphocytes 12.2 % (21.0-51.0); %Monocytes 6.1 % (0.0-10.0); %Neutrophils 79.4 % (42.0-75.0); Mean Corpuscular HGB CONC 30.1 g/dL (32.0-36.0); Mean Corpuscular Hemoglobin 29.6 pg (27.0-31.0); Mean Corpuscular Volume 98.2 fL (78.0-98.0); Mean Platelet Volume 6.8 fL (7.4-10.4); Platelet Count 488 thou/uL (130-400); Red Blood Cell (RBC) Count 3.72 mill/uL (4.70-6.10); White Blood Cell (WBC) Count 16.8 thou/uL (4.8-10.8)
[2022-05-03 07:50] LABS: ALT (SGPT) 14 U/L (8-55); AST (SGOT) 15 U/L (5-34); Albumin 2.5 g/dL (3.5-5.0); Alkaline Phosphatase 60 U/L (40-110); Anion Gap 12 mmol/L (10-20); BUN (Urea Nitrogen) 10 mg/dL (8.4-25.7); Bilirubin, Total 0.2 mg/dL (0.2-1.2); Calc. Creatinine Clearance 117 mL/min (70-130); Calcium 8.1 mg/dL (7.8-10.44); Carbon Dioxide 25 mmol/L (22-29); Chloride 105 mmol/L (98-107); Globulin 4.1 g/dL (2.4-3.5); Glucose 143 mg/dL (70-105); Potassium 4.6 mmol/L (3.5-5.1); Protein, Total 6.6 g/dL (6.0-8.3); Sodium 137 mmol/L (136-145)
[2022-05-03] MEDS: Heparin 5,000 UNITS/ML VIAL SC SCH ×3 (08:36→20:18)
[2022-05-03] MEDS: Cefepime 2 GM in Sodium Chloride 0.9% 100 ML IVPB SCH ×2 (08:39→20:18)
[2022-05-03] MEDS: Amlodipine 5 mg/Benazepril 20 mg CAP PO SCH (08:39)
[2022-05-03] MEDS: Sodium Chloride 0.9% 1,000 ML IV SCH ×2 (08:39→18:33)
[2022-05-03] MEDS ORDERED: fentaNYL Citrate/PF 100 MCG/2 ML SYRINGE ONE (13:01)
[2022-05-03] MEDS ORDERED: Vancomycin 1 GM/200 ML BAG ONE (13:17)
[2022-05-03] MEDS ORDERED: Glycopyrrolate 0.2 MG/ML 5 ML SYRINGE ONE (13:24)
[2022-05-03] MEDS ORDERED: PROPOFOL 200 MG/20 ML VIAL ONE (13:24)
[2022-05-03] MEDS ORDERED: PHENYLEPHRINE-NS 100 MCG/ML 10 ML SYRINGE ONE (13:24)
[2022-05-03] MEDS ORDERED: Ondansetron PF 4 MG/2 ML Vial ONE (13:24)
[2022-05-03] MEDS ORDERED: Lidocaine 1% PF 5 ML VIAL ONE (13:24)
[2022-05-03] MEDS ORDERED: Rocuronium Bromide 10 MG/ML (10ML VIAL) ONE (13:24)
[2022-05-03] MEDS ORDERED: Morphine Sulfate 2 MG/ML SYRINGE SLOW IVP PRN (14:47)
[2022-05-03] MEDS ORDERED: Promethazine HCl 25 MG/ML VIAL IVPB PRN (14:47)
[2022-05-03] MEDS ORDERED: Ondansetron HCl/PF 4 MG/2 ML Vial IVP PRN (14:47)
[2022-05-03] MEDS ORDERED: Promethazine HCl 25 MG/ML VIAL IM PRN (14:47)
[2022-05-03] MEDS: clonazePAM 1 MG TAB PO PRN (23:04)
[2022-05-04] MEDS: Sodium Chloride 0.9% 1,000 ML IV SCH ×2 (05:06→13:34)
[2022-05-04 05:16] LABS: ALT (SGPT) 17 U/L (8-55); AST (SGOT) 16 U/L (5-34); Albumin 2.3 g/dL (3.5-5.0); Alkaline Phosphatase 89 U/L (40-110); Anion Gap 12 mmol/L (10-20); BUN (Urea Nitrogen) 11 mg/dL (8.4-25.7); Bilirubin, Total 0.2 mg/dL (0.2-1.2); Calc. Creatinine Clearance 115 mL/min (70-130); Calcium 7.8 mg/dL (7.8-10.44); Carbon Dioxide 28 mmol/L (22-29); Chloride 101 mmol/L (98-107); Globulin 3.9 g/dL (2.4-3.5); Glucose 131 mg/dL (70-105); Potassium 4.5 mmol/L (3.5-5.1); Protein, Total 6.2 g/dL (6.0-8.3); Sodium 136 mmol/L (136-145)
[2022-05-04] MEDS: Vancomycin 1 GM in Premix Bag 1 BAG IVPB SCH ×3 (05:38→22:48)
[2022-05-04 05:43] LABS: Hemoglobin 10.4 g/dL (14.0-18.0); Mean Corpuscular HGB CONC 31.2 g/dL (32.0-36.0); Mean Corpuscular Hemoglobin 30.2 pg (27.0-31.0); Mean Corpuscular Volume 96.9 fL (78.0-98.0); Platelet Count 495 thou/uL (130-400); Red Blood Cell (RBC) Count 3.43 mill/uL (4.70-6.10); White Blood Cell (WBC) Count 17.7 thou/uL (4.8-10.8)
[2022-05-04 06:33] LABS: #Basophils 0.2 thou/uL (0.0-0.2); #Eosinphils 0.3 thou/uL (0.0-0.7); #Lymphocytes 2.6 thou/uL (1.20-3.40); #Monocytes 1.4 thou/uL (0.11-0.59); #Neutrophils 13.3 thou/uL (1.40-6.50); %Eosinophils 1.6 % (0.0-10.0); %Lymphocytes 14.7 % (21.0-51.0); %Monocytes 7.6 % (0.0-10.0); %Neutrophils 75.2 % (42.0-75.0); Anisocytosis SLIGHT = 6-15 cells (100X) (0-5/hpf); MDiff Complete? YES
[2022-05-04] MEDS: Heparin 5,000 UNITS/ML VIAL SC SCH ×3 (09:18→21:25)
[2022-05-04] MEDS: Amlodipine 5 mg/Benazepril 20 mg CAP PO SCH (09:20)
[2022-05-04] MEDS: Cefepime 2 GM in Sodium Chloride 0.9% 100 ML IVPB SCH ×2 (09:20→21:26)
[2022-05-05] MEDS: Sodium Chloride 0.9% 1,000 ML IV SCH ×3 (01:09→21:13)
[2022-05-05] MEDS: clonazePAM 1 MG TAB PO PRN (03:00)
[2022-05-05 04:17] LABS: #Eosinphils 0.5 thou/uL (0.0-0.7); #Lymphocytes 2.6 thou/uL (1.20-3.40); #Monocytes 1.1 thou/uL (0.11-0.59); #Neutrophils 10.4 thou/uL (1.40-6.50); %Basophils 0.1 % (0.0-1.0); %Eosinophils 3.1 % (0.0-10.0); %Lymphocytes 17.8 % (21.0-51.0); %Monocytes 7.8 % (0.0-10.0); %Neutrophils 71.2 % (42.0-75.0); Hemoglobin 10.4 g/dL (14.0-18.0); Mean Corpuscular HGB CONC 31.5 g/dL (32.0-36.0); Mean Corpuscular Hemoglobin 29.7 pg (27.0-31.0); Mean Corpuscular Volume 94.2 fL (78.0-98.0); Mean Platelet Volume 6.2 fL (7.4-10.4); Platelet Count 626 thou/uL (130-400); RBC Distribution Width 13.3 % (11.5-14.5); Red Blood Cell (RBC) Count 3.51 mill/uL (4.70-6.10); White Blood Cell (WBC) Count 14.6 thou/uL (4.8-10.8)
[2022-05-05 04:23] LABS: Vancomycin, Trough 24.5 ug/mL
[2022-05-05 04:31] LABS: ALT (SGPT) 15 U/L (8-55); AST (SGOT) 16 U/L (5-34); Albumin 2.4 g/dL (3.5-5.0); Alkaline Phosphatase 73 U/L (40-110); Anion Gap 11 mmol/L (10-20); BUN (Urea Nitrogen) 11 mg/dL (8.4-25.7); Bilirubin, Total 0.2 mg/dL (0.2-1.2); Calc. Creatinine Clearance 124 mL/min (70-130); Calcium 8.5 mg/dL (7.8-10.44); Carbon Dioxide 28 mmol/L (22-29); Chloride 102 mmol/L (98-107); Globulin 4.2 g/dL (2.4-3.5); Glucose 114 mg/dL (70-105); Potassium 4.5 mmol/L (3.5-5.1); Protein, Total 6.6 g/dL (6.0-8.3); Sodium 136 mmol/L (136-145)
[2022-05-05] MEDS ORDERED: Vancomycin HCl 750 MG in Sodium Chloride 0.9% 250 ML 250 ML IVPB SCH (06:00)
[2022-05-05] MEDS: Heparin 5,000 UNITS/ML VIAL SC SCH (09:07)
[2022-05-05] MEDS: Amlodipine 5 mg/Benazepril 20 mg CAP PO SCH (09:07)
[2022-05-05] MEDS: Cefepime 2 GM in Sodium Chloride 0.9% 100 ML IVPB SCH ×2 (09:07→21:14)
[2022-05-05] MEDS: metroNIDAZOLE 500 MG in Premix Bag 1 BAG IVPB SCH ×2 (13:34→21:13)
[2022-05-05] MEDS: Morphine 2 MG/ML VIAL SLOW IVP PRN (14:24)
[2022-05-06] MEDS: Sodium Chloride 0.9% 1,000 ML IV SCH (05:42)
[2022-05-06] MEDS: metroNIDAZOLE 500 MG in Premix Bag 1 BAG IVPB SCH ×3 (05:43→21:02)
[2022-05-06 06:58] LABS: ALT (SGPT) 16 U/L (8-55); AST (SGOT) 17 U/L (5-34); Albumin 2.5 g/dL (3.5-5.0); Alkaline Phosphatase 59 U/L (40-110); Anion Gap 12 mmol/L (10-20); BUN (Urea Nitrogen) 12 mg/dL (8.4-25.7); Bilirubin, Total 0.2 mg/dL (0.2-1.2); Calc. Creatinine Clearance 124 mL/min (70-130); Calcium 8.2 mg/dL (7.8-10.44); Carbon Dioxide 26 mmol/L (22-29); Chloride 104 mmol/L (98-107); Globulin 4.2 g/dL (2.4-3.5); Glucose 99 mg/dL (70-105); Potassium 4.4 mmol/L (3.5-5.1); Protein, Total 6.7 g/dL (6.0-8.3); Sodium 138 mmol/L (136-145)
[2022-05-06 07:17] LABS: #Basophils 0.1 thou/uL (0.0-0.2); #Eosinphils 0.4 thou/uL (0.0-0.7); #Lymphocytes 3.3 thou/uL (1.20-3.40); #Monocytes 1.4 thou/uL (0.11-0.59); #Neutrophils 10.5 thou/uL (1.40-6.50); %Basophils 0.4 % (0.0-1.0); %Eosinophils 2.5 % (0.0-10.0); %Lymphocytes 21.3 % (21.0-51.0); %Monocytes 8.9 % (0.0-10.0); %Neutrophils 66.9 % (42.0-75.0); Hemoglobin 10.5 g/dL (14.0-18.0); Mean Corpuscular Hemoglobin 30.3 pg (27.0-31.0); Mean Corpuscular Volume 97.7 fL (78.0-98.0); Mean Platelet Volume 6.5 fL (7.4-10.4); Platelet Count 686 thou/uL (130-400); RBC Distribution Width 13.2 % (11.5-14.5); RBC Morphology Normal; Red Blood Cell (RBC) Count 3.47 mill/uL (4.70-6.10); White Blood Cell (WBC) Count 15.7 thou/uL (4.8-10.8)
[2022-05-06] MEDS: Cefepime 2 GM in Sodium Chloride 0.9% 100 ML IVPB SCH ×2 (08:22→21:03)
[2022-05-06] MEDS: Amlodipine 5 mg/Benazepril 20 mg CAP PO SCH (08:22)
[2022-05-06] MEDS ORDERED: FLUoxetine HCl 10 MG CAP PO SCH (12:15)
[2022-05-06] MEDS: Morphine 2 MG/ML VIAL SLOW IVP PRN (21:03)
[2022-05-06] MEDS: clonazePAM 1 MG TAB PO PRN (22:20)
[2022-05-07] MEDS: metroNIDAZOLE 500 MG in Premix Bag 1 BAG IVPB SCH (06:14)
[2022-05-07 07:57] LABS: #Eosinphils 0.4 thou/uL (0.0-0.7); #Lymphocytes 2.6 thou/uL (1.20-3.40); #Monocytes 1.4 thou/uL (0.11-0.59); #Neutrophils 9.3 thou/uL (1.40-6.50); %Basophils 0.3 % (0.0-1.0); %Eosinophils 2.9 % (0.0-10.0); %Lymphocytes 19.1 % (21.0-51.0); %Monocytes 10.2 % (0.0-10.0); %Neutrophils 67.6 % (42.0-75.0); Hemoglobin 10.3 g/dL (14.0-18.0); Mean Corpuscular HGB CONC 30.3 g/dL (32.0-36.0); Mean Corpuscular Hemoglobin 30.5 pg (27.0-31.0); Mean Platelet Volume 7.5 fL (7.4-10.4); Platelet Count 618 thou/uL (130-400); RBC Distribution Width 13.9 % (11.5-14.5); Red Blood Cell (RBC) Count 3.37 mill/uL (4.70-6.10); White Blood Cell (WBC) Count 13.7 thou/uL (4.8-10.8)
[2022-05-07 08:17] LABS: ALT (SGPT) 16 U/L (8-55); AST (SGOT) 18 U/L (5-34); Albumin 2.4 g/dL (3.5-5.0); Alkaline Phosphatase 53 U/L (40-110); Anion Gap 13 mmol/L (10-20); BUN (Urea Nitrogen) 12 mg/dL (8.4-25.7); Bilirubin, Total 0.2 mg/dL (0.2-1.2); Calc. Creatinine Clearance 132 mL/min (70-130); Calcium 8.7 mg/dL (7.8-10.44); Carbon Dioxide 23 mmol/L (22-29); Chloride 103 mmol/L (98-107); Globulin 4.7 g/dL (2.4-3.5); Glucose 84 mg/dL (70-105); Potassium 4.9 mmol/L (3.5-5.1); Protein, Total 7.1 g/dL (6.0-8.3); Sodium 134 mmol/L (136-145)
[2022-05-07] MEDS: Cefepime 2 GM in Sodium Chloride 0.9% 100 ML IVPB SCH (08:18)
[2022-05-07] MEDS: Amlodipine 5 mg/Benazepril 20 mg CAP PO SCH (08:18)
[2022-05-07] MEDS ORDERED: FLUoxetine HCl 20 MG CAP PO SCH (09:00)
[2022-05-07 13:53] VITALS: BP 132/76; TEMP 98.1
== END 2022-05-07 13:46 | DRG 853 ==
LOC: ERS 15:54 → 2NO 19:00 → T4-A 05-01 17:12
PROVIDERS: ADMIT Student in an Organized Health Care Education/Training Program; ATTEND Student in an Organized Health Care Education/Training Program
PROC: 3E03329 Introduction of Other Anti-infective into Peripheral Vein, Percutaneous Approach (ICD-10-PCS; 2022-04-30)
PROC: 0QB10ZZ Excision of Sacrum, Open Approach (ICD-10-PCS; principal; 2022-05-03)
DX: A41.59 Other Gram-negative sepsis (principal); L89.154 Pressure ulcer of sacral region, stage 4; I96 Gangrene, not elsewhere classified; G82.20 Paraplegia, unspecified; M46.28 Osteomyelitis of vertebra, sacral and sacrococcygeal region; Z20.822 Contact with and (suspected) exposure to COVID-19; I10 Essential (primary) hypertension; F41.9 Anxiety disorder, unspecified; R94.31 Abnormal electrocardiogram [ECG] [EKG]; F32.A Depression, unspecified; Z91.041 Radiographic dye allergy status; Z88.2 Allergy status to sulfonamides; Z88.1 Allergy status to other antibiotic agents; Z79.899 Other long term (current) drug therapy; Z74.01 Bed confinement status
CPT/HCPCS: 36415; 71045; 72192; 80053; 80202; 81001; 83605; 84145; 85025; 85652; 86140; 87040; 87070; 87077; 87149; 87186; 87205; 93005; 96365; 96367; 96375; C1751; J0692; J1644; J2270; J2405; J2543; J2704; J3370; J3490; J7050; J7120; U0002; U0003; U0005

== ENCOUNTER 2022-05-29 16:22 | Inpatient (IN) | payer MEDICARE ==
[2022-05-29] MEDS ORDERED: Vancomycin 1 GM/200 ML BAG ONE ×3 (17:22→18:39)
[2022-05-29] MEDS ORDERED: Ondansetron PF 4 MG/2 ML Vial ONE (17:22)
[2022-05-29] MEDS ORDERED: Piperacillin/Tazobactam 3.375 GM VIAL ONE (17:22)
[2022-05-29 17:45] LABS: Hemoglobin 11.1 g/dL (14.0-18.0); Mean Corpuscular HGB CONC 31.1 g/dL (32.0-36.0); Mean Corpuscular Hemoglobin 29.3 pg (27.0-31.0); Mean Corpuscular Volume 94.1 fL (78.0-98.0); Platelet Count 413 thou/uL (130-400); RBC Distribution Width 13.4 % (11.5-14.5); Red Blood Cell (RBC) Count 3.79 mill/uL (4.70-6.10); White Blood Cell (WBC) Count 22.7 thou/uL (4.8-10.8)
[2022-05-29 17:57] LABS: INR-International Normal Ratio 1.2; Prothrombin Time 15.5 sec (12.0-14.7)
[2022-05-29 17:58] LABS: PTT 41.9 sec (22.9-36.1)
[2022-05-29 18:05] LABS: ALT (SGPT) 14 U/L (8-55); AST (SGOT) 23 U/L (5-34); Albumin 2.9 g/dL (3.5-5.0); Alkaline Phosphatase 84 U/L (40-110); Anion Gap 15 mmol/L (10-20); BUN (Urea Nitrogen) 26 mg/dL (8.4-25.7); Bilirubin, Total 0.6 mg/dL (0.2-1.2); Calc. Creatinine Clearance 0 mL/min (70-130); Calcium 8.6 mg/dL (7.8-10.44); Carbon Dioxide 23 mmol/L (22-29); Chloride 104 mmol/L (98-107); Estimated GFR 72; Globulin 4.6 g/dL (2.4-3.5); Glucose 104 mg/dL (70-105); Lipase 21 U/L (8-78); Potassium 3.7 mmol/L (3.5-5.1); Protein, Total 7.5 g/dL (6.0-8.3); Sodium 138 mmol/L (136-145)
[2022-05-29 18:13] LABS: Band 6 % (5-11); Eosinophils 1 % (0-10); Lymphocytes 4 % (21-51); MDiff Complete? YES; Monocytes 5 % (0-10); Neutrophil 83 % (42-75); Platelet Morphology Comment Appears Increased; RBC Morphology Normal; Reactive Lymphocytes 1 % (0-10)
[2022-05-29 19:18] LABS: Bacteria/HPF 4+ HPF (None Seen); Bilirubin Negative (Negative); Blood, Urine 3+ (Negative); Clarity Extra Turbid (Clear); Glucose, Urine (Dipstick) Normal (Negative); Ketone, Urine Negative (Negative); Leukocyte 500 Leu/uL (Negative); Nitrite Negative (Negative); Protein, Urine (Dipstick) 300 mg/dL (Neg-Trace); RBC/HPF Greater than 50 HPF (0-3); Renal Epithelial 0-3 HPF (None Seen); Specific Gravity, Urine 1.022 (1.002-1.036); Squamous Epithelial 21-50 HPF (0-3); Urobilinogen Normal mg/dL (Less than 2); WBC/HPF Greater than 50 HPF (0-3)
[2022-05-29 20:51] LABS: SARS-CoV-2 NAA Rapid Test Not Detected (NotDetected)
[2022-05-29] MEDS ORDERED: Ondansetron PF 4 MG/2 ML Vial IVP PRN (21:45)
[2022-05-29] MEDS ORDERED: Ondansetron ODT 4 MG TAB SL PRN (21:45)
[2022-05-29] MEDS: Sodium Chloride 0.9% 1,000 ML IV SCH (22:23)
[2022-05-29] MEDS: Piperacillin/Tazobactam 3.375 GM in Sodium Chloride 0.9% 100 ML IVPB SCH (22:23)
[2022-05-29] MEDS: Acetaminophen 325 MG TAB PO PRN (23:06)
[2022-05-29] MEDS ORDERED: Bisacodyl 5 MG TAB PO PRN (23:14)
[2022-05-29] MEDS ORDERED: HYDROcodone/Acetaminophen 5/325 mg Tablet PO PRN (23:14)
[2022-05-29] MEDS ORDERED: Loperamide HCl 2 MG CAP PO PRN (23:14)
[2022-05-29] MEDS ORDERED: Zolpidem Tartrate 5 MG TAB PO PRN (23:14)
[2022-05-29] MEDS ORDERED: Senokot S 8.6-50 MG TAB PO PRN (23:14)
[2022-05-29] MEDS ORDERED: Guaifenesin DM 100-10/5 ML UDCUP PO PRN (23:14)
[2022-05-30] MEDS: Sodium Chloride 0.9% 1,000 ML IV SCH (04:25)
[2022-05-30] MEDS: Piperacillin/Tazobactam 3.375 GM in Sodium Chloride 0.9% 100 ML IVPB SCH ×2 (05:55→19:48)
[2022-05-30] MEDS: Acetaminophen 325 MG TAB PO PRN (05:55)
[2022-05-30 06:31] LABS: #Eosinphils 0.2 thou/uL (0.0-0.7); #Lymphocytes 1.7 thou/uL (1.20-3.40); #Monocytes 1.4 thou/uL (0.11-0.59); #Neutrophils 14.8 thou/uL (1.40-6.50); %Basophils 0.1 % (0.0-1.0); %Eosinophils 1.2 % (0.0-10.0); %Lymphocytes 9.2 % (21.0-51.0); %Monocytes 7.6 % (0.0-10.0); %Neutrophils 81.9 % (42.0-75.0); Hemoglobin 8.8 g/dL (14.0-18.0); Mean Corpuscular HGB CONC 30.4 g/dL (32.0-36.0); Mean Corpuscular Hemoglobin 28.9 pg (27.0-31.0); Mean Corpuscular Volume 95.1 fL (78.0-98.0); Mean Platelet Volume 6.9 fL (7.4-10.4); Platelet Count 375 thou/uL (130-400); RBC Distribution Width 13.4 % (11.5-14.5); Red Blood Cell (RBC) Count 3.04 mill/uL (4.70-6.10); White Blood Cell (WBC) Count 18.1 thou/uL (4.8-10.8)
[2022-05-30 06:48] LABS: Anion Gap 13 mmol/L (10-20); BUN (Urea Nitrogen) 19 mg/dL (8.4-25.7); Calc. Creatinine Clearance 87 mL/min (70-130); Calcium 7.7 mg/dL (7.8-10.44); Carbon Dioxide 21 mmol/L (22-29); Chloride 108 mmol/L (98-107); Estimated GFR 97; Glucose 110 mg/dL (70-105); Potassium 3.4 mmol/L (3.5-5.1); Sodium 139 mmol/L (136-145)
[2022-05-30 08:04] LABS: Amphetamine Not Detected (NotDetected); Barbiturates Screen Not Detected (NotDetected); Benzodiazepine Screen Not Detected (NotDetected); Cocaine Metabolite Screen Not Detected (NotDetected); Methadone Not Detected (NotDetected); Methamphetamine Not Detected (NotDetected); Opiate Screen Not Detected (NotDetected); Oxycodone Screen Not Detected (NotDetected); Phencyclidine (PCP) Not Detected (NotDetected); THC/Cannabinoid Screen Detected (NotDetected); Tricyclic Screen Not Detected (NotDetected)
[2022-05-30] MEDS: Amlodipine 5 mg/Benazepril 20 mg CAP PO SCH ×2 (09:07→15:33)
[2022-05-30] MEDS: Enoxaparin Sodium 40 MG/0.4 ML SYRINGE SC SCH (09:35)
[2022-05-30] MEDS ORDERED: Acetaminophen 325 MG TAB PO PRN ×2 (10:13→17:28)
[2022-05-30] MEDS ORDERED: Potassium Chloride 20 MEQ TAB PO SCH (10:15)
[2022-05-30] MEDS ORDERED: Senokot S 8.6-50 MG TAB PO PRN (10:55)
[2022-05-30] MEDS ORDERED: Loperamide HCl 2 MG CAP PO SCH (15:00)
[2022-05-30] MEDS ORDERED: Ibuprofen 200 MG TAB PO SCH (17:30)
[2022-05-30] MEDS ORDERED: Piperacillin/Tazobactam 3.375 GM in Sodium Chloride 0.9% 100 ML IVPB SCH (17:45)
[2022-05-30] MEDS: clonazePAM 1 MG TAB PO PRN (23:07)
[2022-05-31] MEDS: Piperacillin/Tazobactam 3.375 GM in Sodium Chloride 0.9% 100 ML IVPB SCH ×3 (05:04→21:18)
[2022-05-31 06:33] LABS: #Eosinphils 0.5 thou/uL (0.0-0.7); #Lymphocytes 1.8 thou/uL (1.20-3.40); #Monocytes 1.4 thou/uL (0.11-0.59); #Neutrophils 9.2 thou/uL (1.40-6.50); %Basophils 0.1 % (0.0-1.0); %Lymphocytes 14.1 % (21.0-51.0); %Monocytes 10.7 % (0.0-10.0); %Neutrophils 71.2 % (42.0-75.0); Hemoglobin 9.4 g/dL (14.0-18.0); Mean Corpuscular HGB CONC 29.5 g/dL (32.0-36.0); Mean Corpuscular Hemoglobin 28.4 pg (27.0-31.0); Mean Corpuscular Volume 96.3 fL (78.0-98.0); Mean Platelet Volume 8.5 fL (7.4-10.4); Platelet Count 358 thou/uL (130-400); RBC Distribution Width 13.6 % (11.5-14.5); Red Blood Cell (RBC) Count 3.31 mill/uL (4.70-6.10)
[2022-05-31 06:50] LABS: Anion Gap 11 mmol/L (10-20); BUN (Urea Nitrogen) 14 mg/dL (8.4-25.7); Calc. Creatinine Clearance 99 mL/min (70-130); Calcium 8.5 mg/dL (7.8-10.44); Carbon Dioxide 22 mmol/L (22-29); Chloride 110 mmol/L (98-107); Estimated GFR 106; Glucose 97 mg/dL (70-105); Potassium 3.8 mmol/L (3.5-5.1); Sodium 139 mmol/L (136-145)
[2022-05-31] MEDS: Enoxaparin Sodium 40 MG/0.4 ML SYRINGE SC SCH (09:33)
[2022-05-31] MEDS: FLUoxetine HCl 20 MG CAP PO SCH (09:33)
[2022-05-31] MEDS: Amlodipine 5 mg/Benazepril 20 mg CAP PO SCH (09:33)
[2022-05-31] MEDS: Lactated Ringer's 1,000 ML IV SCH (11:41)
[2022-05-31] MEDS ORDERED: Magnesium Citrate 300 ML BOT PO SCH (13:00)
[2022-05-31] MEDS: clonazePAM 1 MG TAB PO PRN (21:32)
[2022-05-31] MEDS: Melatonin 3 MG TAB PO PRN (21:32)
[2022-06-01] MEDS: Piperacillin/Tazobactam 3.375 GM in Sodium Chloride 0.9% 100 ML IVPB SCH ×3 (04:37→22:09)
[2022-06-01 06:48] LABS: #Eosinphils 0.4 thou/uL (0.0-0.7); #Lymphocytes 2.8 thou/uL (1.20-3.40); #Monocytes 1.4 thou/uL (0.11-0.59); %Basophils 0.3 % (0.0-1.0); %Eosinophils 3.2 % (0.0-10.0); %Lymphocytes 22.4 % (21.0-51.0); %Neutrophils 63.1 % (42.0-75.0); Hemoglobin 9.1 g/dL (14.0-18.0); Mean Corpuscular HGB CONC 30.7 g/dL (32.0-36.0); Mean Corpuscular Hemoglobin 29.2 pg (27.0-31.0); Mean Corpuscular Volume 95.4 fL (78.0-98.0); Mean Platelet Volume 6.9 fL (7.4-10.4); Platelet Count 487 thou/uL (130-400); RBC Distribution Width 13.5 % (11.5-14.5); Red Blood Cell (RBC) Count 3.13 mill/uL (4.70-6.10); White Blood Cell (WBC) Count 12.7 thou/uL (4.8-10.8)
[2022-06-01 07:10] LABS: Anion Gap 13 mmol/L (10-20); BUN (Urea Nitrogen) 11 mg/dL (8.4-25.7); Calc. Creatinine Clearance 98 mL/min (70-130); Calcium 8.6 mg/dL (7.8-10.44); Carbon Dioxide 25 mmol/L (22-29); Chloride 107 mmol/L (98-107); Estimated GFR 106; Glucose 83 mg/dL (70-105); Sodium 141 mmol/L (136-145)
[2022-06-01] MEDS: FLUoxetine HCl 20 MG CAP PO SCH (10:17)
[2022-06-01] MEDS: Amlodipine 5 mg/Benazepril 20 mg CAP PO SCH (10:18)
[2022-06-01] MEDS: Enoxaparin Sodium 40 MG/0.4 ML SYRINGE SC SCH (10:18)
[2022-06-01 14:08] LABS: Campy jejuni + coli by PCR Negative (Negative); STEC Shiga Toxin 1+2 Negative (Negative); Salmonella spp. by PCR Negative (Negative); Shigella spp + EIEC by PCR Negative (Negative)
[2022-06-01] MEDS ORDERED: Bupivacaine 0.25% HCL 30 ML VIAL ONE (14:44)
[2022-06-01] MEDS ORDERED: Lidocaine 1% w/Epinephrine 1:100K 20 ML VIAL ONE (14:44)
[2022-06-01] MEDS ORDERED: Midazolam HCl 2 mg/2 ml Vial ONE (14:54)
[2022-06-01] MEDS ORDERED: HYDROmorphone 2 MG/ML VIAL ONE (14:54)
[2022-06-01] MEDS ORDERED: fentaNYL Citrate/PF 100 MCG/2 ML SYRINGE ONE (14:54)
[2022-06-01] MEDS ORDERED: PROPOFOL 200 MG/20 ML VIAL ONE (15:46)
[2022-06-01] MEDS ORDERED: Dexamethasone 20 MG/5 ML VIAL ONE (15:46)
[2022-06-01] MEDS ORDERED: Lidocaine 1% PF 5 ML VIAL ONE (15:46)
[2022-06-01] MEDS ORDERED: ePHEDrine 50 MG/ML VIAL ONE (15:46)
[2022-06-01] MEDS ORDERED: PHENYLEPHRINE-NS 100 MCG/ML 10 ML SYRINGE ONE ×2 (15:46→16:16)
[2022-06-01] MEDS ORDERED: Rocuronium Bromide 10 MG/ML (10ML VIAL) ONE (15:46)
[2022-06-01] MEDS ORDERED: Ondansetron PF 4 MG/2 ML Vial ONE (15:46)
[2022-06-01] MEDS ORDERED: Glycopyrrolate 0.2 MG/ML 5 ML SYRINGE ONE (15:46)
[2022-06-01] MEDS ORDERED: traMADol HCl 50 MG TAB PO PRN (16:02)
[2022-06-01] MEDS ORDERED: HYDROcodone/Acetaminophen 5/325 mg Tablet PO PRN (16:02)
[2022-06-01] MEDS ORDERED: SUGAMMADEX SODIUM 200 MG/2 ML VIAL ONE (16:54)
[2022-06-01] MEDS: Lactated Ringer's 1,000 ML IV SCH (17:29)
[2022-06-01] MEDS: clonazePAM 1 MG TAB PO PRN (22:20)
[2022-06-01] MEDS: Melatonin 3 MG TAB PO PRN (22:20)
[2022-06-02] MEDS: Lactated Ringer's 1,000 ML IV SCH ×3 (03:16→21:11)
[2022-06-02 06:27] LABS: #Lymphocytes 1.7 thou/uL (1.20-3.40); #Monocytes 0.6 thou/uL (0.11-0.59); #Neutrophils 11.8 thou/uL (1.40-6.50); %Basophils 0.1 % (0.0-1.0); %Eosinophils 0.1 % (0.0-10.0); %Lymphocytes 12.2 % (21.0-51.0); %Monocytes 4.5 % (0.0-10.0); %Neutrophils 83.1 % (42.0-75.0); Hemoglobin 10.1 g/dL (14.0-18.0); Mean Corpuscular HGB CONC 30.2 g/dL (32.0-36.0); Mean Corpuscular Hemoglobin 28.6 pg (27.0-31.0); Mean Corpuscular Volume 94.6 fL (78.0-98.0); Mean Platelet Volume 6.8 fL (7.4-10.4); Platelet Count 572 thou/uL (130-400); RBC Distribution Width 13.5 % (11.5-14.5); Red Blood Cell (RBC) Count 3.53 mill/uL (4.70-6.10); White Blood Cell (WBC) Count 14.3 thou/uL (4.8-10.8)
[2022-06-02 06:49] LABS: Anion Gap 13 mmol/L (10-20); BUN (Urea Nitrogen) 16 mg/dL (8.4-25.7); Calc. Creatinine Clearance 82 mL/min (70-130); Calcium 8.6 mg/dL (7.8-10.44); Carbon Dioxide 25 mmol/L (22-29); Chloride 102 mmol/L (98-107); Estimated GFR 91; Glucose 152 mg/dL (70-105); Magnesium 1.9 mg/dL (1.6-2.6); Phosphorus 4.3 mg/dL (2.3-4.7); Potassium 4.4 mmol/L (3.5-5.1); Sodium 136 mmol/L (136-145)
[2022-06-02] MEDS: Enoxaparin Sodium 40 MG/0.4 ML SYRINGE SC SCH (08:51)
[2022-06-02] MEDS: cefTRIAXone\\ROCEPHIN 2 GM VIAL IM SCH (08:52)
[2022-06-02] MEDS: FLUoxetine HCl 20 MG CAP PO SCH (08:53)
[2022-06-02] MEDS: Lidocaine 1% (PF) 30 ML VIAL FS SCH (08:54)
[2022-06-02] MEDS: Amlodipine 5 mg/Benazepril 20 mg CAP PO SCH (16:03)
[2022-06-02] MEDS: Melatonin 3 MG TAB PO PRN (23:19)
[2022-06-02] MEDS: clonazePAM 1 MG TAB PO PRN (23:19)
[2022-06-03 06:45] LABS: #Eosinphils 0.2 thou/uL (0.0-0.7); #Lymphocytes 2.9 thou/uL (1.20-3.40); #Monocytes 1.4 thou/uL (0.11-0.59); #Neutrophils 12.1 thou/uL (1.40-6.50); %Basophils 0.3 % (0.0-1.0); %Eosinophils 1.2 % (0.0-10.0); %Lymphocytes 17.3 % (21.0-51.0); %Monocytes 8.2 % (0.0-10.0); Hemoglobin 10.1 g/dL (14.0-18.0); Mean Corpuscular HGB CONC 30.4 g/dL (32.0-36.0); Mean Corpuscular Hemoglobin 28.7 pg (27.0-31.0); Mean Corpuscular Volume 94.3 fL (78.0-98.0); Mean Platelet Volume 6.8 fL (7.4-10.4); Platelet Count 628 thou/uL (130-400); RBC Distribution Width 13.6 % (11.5-14.5); Red Blood Cell (RBC) Count 3.51 mill/uL (4.70-6.10); White Blood Cell (WBC) Count 16.5 thou/uL (4.8-10.8)
[2022-06-03] MEDS: Lactated Ringer's 1,000 ML IV SCH (06:46)
[2022-06-03 07:06] LABS: Anion Gap 12 mmol/L (10-20); BUN (Urea Nitrogen) 25 mg/dL (8.4-25.7); Calc. Creatinine Clearance 104 mL/min (70-130); Calcium 8.6 mg/dL (7.8-10.44); Carbon Dioxide 27 mmol/L (22-29); Chloride 105 mmol/L (98-107); Estimated GFR 108; Glucose 111 mg/dL (70-105); Magnesium 1.7 mg/dL (1.6-2.6); Potassium 4.3 mmol/L (3.5-5.1); Sodium 140 mmol/L (136-145)
[2022-06-03 07:16] LABS: Phosphorus 3.4 mg/dL (2.3-4.7)
[2022-06-03] MEDS: Lidocaine 1% (PF) 30 ML VIAL FS SCH (11:04)
[2022-06-03] MEDS: FLUoxetine HCl 20 MG CAP PO SCH (11:04)
[2022-06-03] MEDS: Enoxaparin Sodium 40 MG/0.4 ML SYRINGE SC SCH (11:04)
[2022-06-03] MEDS: Amlodipine 5 mg/Benazepril 20 mg CAP PO SCH (11:04)
[2022-06-03] MEDS: cefTRIAXone\\ROCEPHIN 2 GM VIAL IM SCH ×2 (11:05→11:54)
[2022-06-03] MEDS ORDERED: cefTRIAXone\\ROCEPHIN 2 GM in Sodium Chloride 0.9% 100 ML IVPB SCH (12:00)
[2022-06-03] MEDS: Polyethylene Glycol 3350 17 GM Packet PO SCH ×2 (22:30→23:01)
[2022-06-03] MEDS: Ketorolac Tromethamine 30 MG/ML VIAL IVP PRN (23:02)
[2022-06-04] MEDS: Lactated Ringer's 1,000 ML IV SCH ×3 (00:45→12:51)
[2022-06-04] MEDS: Ketorolac Tromethamine 30 MG/ML VIAL IVP PRN ×3 (05:50→21:05)
[2022-06-04 06:10] LABS: #Eosinphils 0.1 thou/uL (0.0-0.7); #Monocytes 1.1 thou/uL (0.11-0.59); #Neutrophils 14.2 thou/uL (1.40-6.50); %Eosinophils 0.5 % (0.0-10.0); %Lymphocytes 11.3 % (21.0-51.0); %Monocytes 6.5 % (0.0-10.0); %Neutrophils 81.7 % (42.0-75.0); Hemoglobin 10.4 g/dL (14.0-18.0); Mean Corpuscular HGB CONC 31.8 g/dL (32.0-36.0); Mean Corpuscular Hemoglobin 29.4 pg (27.0-31.0); Mean Corpuscular Volume 92.5 fL (78.0-98.0); Platelet Count 684 thou/uL (130-400); RBC Distribution Width 13.7 % (11.5-14.5); Red Blood Cell (RBC) Count 3.54 mill/uL (4.70-6.10); White Blood Cell (WBC) Count 17.4 thou/uL (4.8-10.8)
[2022-06-04 06:27] LABS: Anion Gap 14 mmol/L (10-20); BUN (Urea Nitrogen) 18 mg/dL (8.4-25.7); Calc. Creatinine Clearance 110 mL/min (70-130); Calcium 9.1 mg/dL (7.8-10.44); Carbon Dioxide 27 mmol/L (22-29); Chloride 104 mmol/L (98-107); Estimated GFR 109; Glucose 115 mg/dL (70-105); Potassium 3.9 mmol/L (3.5-5.1); Sodium 141 mmol/L (136-145)
[2022-06-04] MEDS ORDERED: MD-Gastroview 120 ML BOT ONE (08:00)
[2022-06-04] MEDS: cefTRIAXone\\ROCEPHIN 2 GM in Sodium Chloride 0.9% 100 ML IVPB SCH (10:10)
[2022-06-04] MEDS: Amlodipine 5 mg/Benazepril 20 mg CAP PO SCH (10:16)
[2022-06-04] MEDS: FLUoxetine HCl 20 MG CAP PO SCH (10:16)
[2022-06-04] MEDS: Polyethylene Glycol 3350 17 GM Packet PO SCH (10:17)
[2022-06-04] MEDS ORDERED: Pantoprazole 40 MG VIAL IVP SCH (11:00)
[2022-06-04] MEDS: Enoxaparin Sodium 40 MG/0.4 ML SYRINGE SC SCH (11:38)
[2022-06-04] MEDS ORDERED: Labetalol HCl 100 MG/20 ML VIAL SLOW IVP PRN (17:07)
[2022-06-04] MEDS ORDERED: hydrALAZINE 20 MG/ML VIAL SLOW IVP PRN (17:08)
[2022-06-04] MEDS: Pantoprazole 40 MG VIAL IVP SCH (21:05)
[2022-06-05] MEDS: Lactated Ringer's 1,000 ML IV SCH ×3 (02:15→18:11)
[2022-06-05] MEDS: Ketorolac Tromethamine 30 MG/ML VIAL IVP PRN (03:49)
[2022-06-05 06:16] LABS: Hemoglobin 10.4 g/dL (14.0-18.0); Mean Corpuscular HGB CONC 29.8 g/dL (32.0-36.0); Mean Corpuscular Volume 93.7 fL (78.0-98.0); Mean Platelet Volume 6.8 fL (7.4-10.4); Platelet Count 758 thou/uL (130-400); Red Blood Cell (RBC) Count 3.71 mill/uL (4.70-6.10)
[2022-06-05 06:32] LABS: ALT (SGPT) 14 U/L (8-55); AST (SGOT) 11 U/L (5-34); Alkaline Phosphatase 64 U/L (40-110); Anion Gap 16 mmol/L (10-20); BUN (Urea Nitrogen) 26 mg/dL (8.4-25.7); Bilirubin, Total 0.2 mg/dL (0.2-1.2); Calc. Creatinine Clearance 92 mL/min (70-130); Calcium 9.5 mg/dL (7.8-10.44); Carbon Dioxide 29 mmol/L (22-29); Chloride 104 mmol/L (98-107); Estimated GFR 104; Globulin 4.6 g/dL (2.4-3.5); Glucose 112 mg/dL (70-105); Potassium 4.1 mmol/L (3.5-5.1); Protein, Total 7.6 g/dL (6.0-8.3); Sodium 145 mmol/L (136-145)
[2022-06-05 06:49] LABS: Band 5 % (5-11); Lymphocytes 10 % (21-51); MDiff Complete? YES; Monocytes 4 % (0-10); Neutrophil 81 % (42-75); Platelet Morphology Comment Appears Increased
[2022-06-05] MEDS ORDERED: Lactated Ringer's 1,000 ML IV SCH (08:00)
[2022-06-05] MEDS ORDERED: fentaNYL Citrate/PF 100 MCG/2 ML SYRINGE ONE (08:26)
[2022-06-05] MEDS ORDERED: HYDROmorphone 2 MG/ML VIAL ONE (08:26)
[2022-06-05] MEDS ORDERED: Midazolam HCl 2 mg/2 ml Vial ONE (08:44)
[2022-06-05] MEDS: Amlodipine 5 mg/Benazepril 20 mg CAP PO SCH (09:00)
[2022-06-05] MEDS: Enoxaparin Sodium 40 MG/0.4 ML SYRINGE SC SCH (09:00)
[2022-06-05] MEDS ORDERED: Dexamethasone 20 MG/5 ML VIAL ONE (09:10)
[2022-06-05] MEDS ORDERED: Ondansetron PF 4 MG/2 ML Vial ONE (09:10)
[2022-06-05] MEDS ORDERED: PROPOFOL 200 MG/20 ML VIAL ONE (09:10)
[2022-06-05] MEDS ORDERED: Lidocaine 1% PF 5 ML VIAL ONE (09:10)
[2022-06-05] MEDS ORDERED: PHENYLEPHRINE-NS 100 MCG/ML 10 ML SYRINGE ONE (09:10)
[2022-06-05] MEDS ORDERED: Rocuronium Bromide 10 MG/ML (10ML VIAL) ONE (09:10)
[2022-06-05] MEDS ORDERED: Sodium Chloride 0.9% 100 ML ONE (09:14)
[2022-06-05] MEDS ORDERED: cefTRIAXone\\ROCEPHIN 2 GM VIAL ONE (09:14)
[2022-06-05] MEDS ORDERED: SUGAMMADEX SODIUM 200 MG/2 ML VIAL ONE (09:24)
[2022-06-05] MEDS ORDERED: Phenylephrine 10 MG/ML VIAL ONE (09:56)
[2022-06-05] MEDS: FLUoxetine HCl 20 MG CAP PO SCH (10:15)
[2022-06-05] MEDS: Polyethylene Glycol 3350 17 GM Packet PO SCH (10:15)
[2022-06-05] MEDS ORDERED: Albumin 5% 500 ML ONE (10:23)
[2022-06-05] MEDS ORDERED: HYDROmorphone 2 MG/ML VIAL SLOW IVP PRN (11:23)
[2022-06-05] MEDS ORDERED: Ondansetron HCl/PF 4 MG/2 ML Vial IVP PRN (11:23)
[2022-06-05] MEDS ORDERED: Promethazine HCl 25 MG/ML VIAL IVPB PRN (11:23)
[2022-06-05] MEDS ORDERED: Promethazine HCl 25 MG/ML VIAL IM PRN (11:23)
[2022-06-05] MEDS ORDERED: Morphine 4 MG/ML VIAL SLOW IVP PRN (11:33)
[2022-06-05] MEDS ORDERED: Morphine 2 MG/ML VIAL SLOW IVP PRN (11:33)
[2022-06-05] MEDS: cefTRIAXone\\ROCEPHIN 2 GM in Sodium Chloride 0.9% 100 ML IVPB SCH (12:04)
[2022-06-05] MEDS: Pantoprazole 40 MG VIAL IVP SCH ×2 (14:32→20:32)
[2022-06-05 23:13] LABS: Norovirus GI Negative (Negative); Norovirus GII Negative (Negative)
[2022-06-06] MEDS: Lactated Ringer's 1,000 ML IV SCH ×4 (03:19→23:54)
[2022-06-06 07:45] LABS: Hemoglobin 10.1 g/dL (14.0-18.0); Mean Corpuscular Hemoglobin 29.1 pg (27.0-31.0); Mean Corpuscular Volume 93.8 fL (78.0-98.0); Platelet Count 854 thou/uL (130-400); RBC Distribution Width 14.1 % (11.5-14.5); Red Blood Cell (RBC) Count 3.47 mill/uL (4.70-6.10); White Blood Cell (WBC) Count 22.2 thou/uL (4.8-10.8)
[2022-06-06 07:49] LABS: ALT (SGPT) 10 U/L (8-55); AST (SGOT) 12 U/L (5-34); Alkaline Phosphatase 56 U/L (40-110); Anion Gap 16 mmol/L (10-20); BUN (Urea Nitrogen) 23 mg/dL (8.4-25.7); Bilirubin, Total 0.4 mg/dL (0.2-1.2); Calc. Creatinine Clearance 98 mL/min (70-130); Calcium 8.8 mg/dL (7.8-10.44); Carbon Dioxide 29 mmol/L (22-29); Chloride 104 mmol/L (98-107); Estimated GFR 106; Glucose 100 mg/dL (70-105); Potassium 4.1 mmol/L (3.5-5.1); Sodium 145 mmol/L (136-145)
[2022-06-06] MEDS: cefTRIAXone\\ROCEPHIN 2 GM in Sodium Chloride 0.9% 100 ML IVPB SCH (08:17)
[2022-06-06] MEDS: Enoxaparin Sodium 40 MG/0.4 ML SYRINGE SC SCH (08:17)
[2022-06-06] MEDS: Pantoprazole 40 MG VIAL IVP SCH ×2 (08:18→20:40)
[2022-06-06] MEDS: FLUoxetine HCl 20 MG CAP PO SCH (08:20)
[2022-06-06] MEDS: Amlodipine 5 mg/Benazepril 20 mg CAP PO SCH (08:22)
[2022-06-06 09:04] LABS: Band 12 % (5-11); Lymphocytes 10 % (21-51); MDiff Complete? YES; Monocytes 3 % (0-10); Neutrophil 75 % (42-75); Platelet Morphology Comment Appears Increased; Polychromasia SLIGHT = 2-3 cells (100X) (0-2/hpf)
[2022-06-06] MEDS: clonazePAM 1 MG TAB PO PRN (21:57)
[2022-06-06] MEDS: Melatonin 3 MG TAB PO PRN (23:45)
[2022-06-07 05:49] LABS: #Eosinphils 0.3 thou/uL (0.0-0.7); #Lymphocytes 2.1 thou/uL (1.20-3.40); #Monocytes 1.5 thou/uL (0.11-0.59); #Neutrophils 12.3 thou/uL (1.40-6.50); %Basophils 0.1 % (0.0-1.0); %Eosinophils 1.9 % (0.0-10.0); %Monocytes 9.1 % (0.0-10.0); %Neutrophils 75.8 % (42.0-75.0); Hemoglobin 8.9 g/dL (14.0-18.0); Mean Corpuscular HGB CONC 29.9 g/dL (32.0-36.0); Mean Corpuscular Hemoglobin 28.3 pg (27.0-31.0); Mean Corpuscular Volume 94.6 fL (78.0-98.0); Mean Platelet Volume 6.7 fL (7.4-10.4); Platelet Count 823 thou/uL (130-400); RBC Distribution Width 14.2 % (11.5-14.5); Red Blood Cell (RBC) Count 3.15 mill/uL (4.70-6.10); White Blood Cell (WBC) Count 16.3 thou/uL (4.8-10.8)
[2022-06-07 06:02] LABS: ALT (SGPT) 7 U/L (8-55); AST (SGOT) 9 U/L (5-34); Albumin 2.7 g/dL (3.5-5.0); Alkaline Phosphatase 52 U/L (40-110); Anion Gap 18 mmol/L (10-20); BUN (Urea Nitrogen) 17 mg/dL (8.4-25.7); Bilirubin, Total 0.2 mg/dL (0.2-1.2); Calc. Creatinine Clearance 118 mL/min (70-130); Calcium 8.7 mg/dL (7.8-10.44); Carbon Dioxide 26 mmol/L (22-29); Chloride 104 mmol/L (98-107); Estimated GFR 112; Globulin 3.8 g/dL (2.4-3.5); Glucose 78 mg/dL (70-105); Potassium 3.6 mmol/L (3.5-5.1); Protein, Total 6.5 g/dL (6.0-8.3); Sodium 144 mmol/L (136-145)
[2022-06-07] MEDS: Lactated Ringer's 1,000 ML IV SCH ×2 (08:35→18:01)
[2022-06-07] MEDS: Enoxaparin Sodium 40 MG/0.4 ML SYRINGE SC SCH (08:36)
[2022-06-07] MEDS: cefTRIAXone\\ROCEPHIN 2 GM in Sodium Chloride 0.9% 100 ML IVPB SCH (08:37)
[2022-06-07] MEDS: Amlodipine 5 mg/Benazepril 20 mg CAP PO SCH (08:37)
[2022-06-07] MEDS: FLUoxetine HCl 20 MG CAP PO SCH (08:37)
[2022-06-07] MEDS: Pantoprazole 40 MG VIAL IVP SCH ×2 (08:38→20:29)
[2022-06-07] MEDS: clonazePAM 1 MG TAB PO PRN (21:51)
[2022-06-07] MEDS: Melatonin 3 MG TAB PO PRN (21:51)
[2022-06-08] MEDS: Lactated Ringer's 1,000 ML IV SCH ×2 (02:18→11:01)
[2022-06-08 05:47] LABS: #Eosinphils 0.7 thou/uL (0.0-0.7); #Lymphocytes 2.2 thou/uL (1.20-3.40); #Neutrophils 6.6 thou/uL (1.40-6.50); %Basophils 0.1 % (0.0-1.0); %Eosinophils 6.4 % (0.0-10.0); %Lymphocytes 20.9 % (21.0-51.0); %Monocytes 9.3 % (0.0-10.0); %Neutrophils 63.3 % (42.0-75.0); Hemoglobin 8.6 g/dL (14.0-18.0); Mean Corpuscular HGB CONC 30.2 g/dL (32.0-36.0); Mean Corpuscular Hemoglobin 28.7 pg (27.0-31.0); Mean Corpuscular Volume 94.9 fL (78.0-98.0); Mean Platelet Volume 6.4 fL (7.4-10.4); Platelet Count 787 thou/uL (130-400); Red Blood Cell (RBC) Count 2.99 mill/uL (4.70-6.10); White Blood Cell (WBC) Count 10.4 thou/uL (4.8-10.8)
[2022-06-08 06:29] LABS: Anion Gap 17 mmol/L (10-20); BUN (Urea Nitrogen) 14 mg/dL (8.4-25.7); Calc. Creatinine Clearance 127 mL/min (70-130); Calcium 8.6 mg/dL (7.8-10.44); Carbon Dioxide 27 mmol/L (22-29); Chloride 104 mmol/L (98-107); Estimated GFR 114; Glucose 70 mg/dL (70-105); Potassium 3.6 mmol/L (3.5-5.1); Sodium 144 mmol/L (136-145)
[2022-06-08] MEDS: cefTRIAXone\\ROCEPHIN 2 GM in Sodium Chloride 0.9% 100 ML IVPB SCH (08:03)
[2022-06-08] MEDS: Amlodipine 5 mg/Benazepril 20 mg CAP PO SCH (08:06)
[2022-06-08] MEDS: Pantoprazole 40 MG VIAL IVP SCH ×2 (08:06→21:24)
[2022-06-08] MEDS: Enoxaparin Sodium 40 MG/0.4 ML SYRINGE SC SCH (08:06)
[2022-06-08] MEDS: FLUoxetine HCl 20 MG CAP PO SCH (08:06)
[2022-06-08] MEDS ORDERED: Amlodipine 5 MG TAB PO SCH (09:45)
[2022-06-08] MEDS: MULTIVITAMINS IV SCH (15:21)
[2022-06-08] MEDS: FAT EMULSION IV SCH (15:21)
[2022-06-08] MEDS: TRACE ELEMENT IV SCH (15:21)
[2022-06-08] MEDS: [UNRECOGNIZED DRUG - OTHER] IV SCH (15:21)
[2022-06-08 17:15] LABS: INR-International Normal Ratio 1.3; PTT 37.5 sec (22.9-36.1); Prothrombin Time 16.4 sec (12.0-14.7)
[2022-06-08 17:26] LABS: ALT (SGPT) Less than 7 U/L (8-55); AST (SGOT) 8 U/L (5-34); Albumin 2.5 g/dL (3.5-5.0); Alkaline Phosphatase 44 U/L (40-110); Anion Gap 16 mmol/L (10-20); BUN (Urea Nitrogen) 13 mg/dL (8.4-25.7); Bilirubin, Total 0.2 mg/dL (0.2-1.2); Calc. Creatinine Clearance 127 mL/min (70-130); Calcium 8.3 mg/dL (7.8-10.44); Carbon Dioxide 26 mmol/L (22-29); Cardiac Risk 3.3 (Less than 4.5); Chloride 104 mmol/L (98-107); Cholesterol 86 mg/dl (< 200 Desired); Estimated GFR 114; Globulin 3.4 g/dL (2.4-3.5); Glucose 114 mg/dL (70-105); HDL Cholesterol 26 mg/dL (>60 Neg Risk); LDL Cholesterol, Calculated 45 mg/dL; Magnesium 1.7 mg/dL (1.6-2.6); Phosphorus 2.8 mg/dL (2.3-4.7); Potassium 3.5 mmol/L (3.5-5.1); Protein, Total 5.9 g/dL (6.0-8.3); Sodium 142 mmol/L (136-145); Triglycerides 77 mg/dL (Less than 150)
[2022-06-08] MEDS: Melatonin 3 MG TAB PO PRN (21:24)
[2022-06-08] MEDS: clonazePAM 1 MG TAB PO PRN (21:25)
[2022-06-09 06:24] LABS: #Eosinphils 0.6 thou/uL (0.0-0.7); #Monocytes 1.1 thou/uL (0.11-0.59); #Neutrophils 8.9 thou/uL (1.40-6.50); %Eosinophils 4.5 % (0.0-10.0); %Lymphocytes 15.7 % (21.0-51.0); %Monocytes 8.8 % (0.0-10.0); Hemoglobin 8.9 g/dL (14.0-18.0); Mean Corpuscular HGB CONC 30.4 g/dL (32.0-36.0); Mean Corpuscular Hemoglobin 28.7 pg (27.0-31.0); Mean Corpuscular Volume 94.6 fL (78.0-98.0); Mean Platelet Volume 6.6 fL (7.4-10.4); Platelet Count 803 thou/uL (130-400); RBC Distribution Width 14.1 % (11.5-14.5); Red Blood Cell (RBC) Count 3.08 mill/uL (4.70-6.10); White Blood Cell (WBC) Count 12.5 thou/uL (4.8-10.8)
[2022-06-09 06:34] LABS: INR-International Normal Ratio 1.2; PTT 39.2 sec (22.9-36.1); Prothrombin Time 15.1 sec (12.0-14.7)
[2022-06-09 06:49] LABS: ALT (SGPT) Less than 7 U/L (8-55); AST (SGOT) 6 U/L (5-34); Albumin 2.5 g/dL (3.5-5.0); Alkaline Phosphatase 43 U/L (40-110); Anion Gap 14 mmol/L (10-20); BUN (Urea Nitrogen) 15 mg/dL (8.4-25.7); Bilirubin, Total 0.2 mg/dL (0.2-1.2); Calc. Creatinine Clearance 125 mL/min (70-130); Calcium 8.3 mg/dL (7.8-10.44); Carbon Dioxide 29 mmol/L (22-29); Cardiac Risk 2.9 (Less than 4.5); Chloride 103 mmol/L (98-107); Cholesterol 73 mg/dl (< 200 Desired); Estimated GFR 114; Globulin 3.4 g/dL (2.4-3.5); Glucose 178 mg/dL (70-105); HDL Cholesterol 25 mg/dL (>60 Neg Risk); LDL Cholesterol, Calculated 34 mg/dL; Magnesium 1.7 mg/dL (1.6-2.6); Phosphorus 3.1 mg/dL (2.3-4.7); Potassium 3.5 mmol/L (3.5-5.1); Protein, Total 5.9 g/dL (6.0-8.3); Sodium 142 mmol/L (136-145); Triglycerides 68 mg/dL (Less than 150)
[2022-06-09] MEDS: Pantoprazole 40 MG VIAL IVP SCH ×2 (08:15→21:26)
[2022-06-09] MEDS: FLUoxetine HCl 20 MG CAP PO SCH (08:15)
[2022-06-09] MEDS: Enoxaparin Sodium 40 MG/0.4 ML SYRINGE SC SCH (08:15)
[2022-06-09] MEDS: Amlodipine 5 mg/Benazepril 20 mg CAP PO SCH (08:15)
[2022-06-09] MEDS: cefTRIAXone\\ROCEPHIN 2 GM in Sodium Chloride 0.9% 100 ML IVPB SCH (08:18)
[2022-06-09] MEDS: Lisinopril 20 MG TAB PO SCH (08:30)
[2022-06-09] MEDS: Amlodipine 10 MG TAB PO SCH (08:30)
[2022-06-09] MEDS ORDERED: Amlodipine 5 MG TAB PO SCH (09:00)
[2022-06-09] MEDS ORDERED: Lisinopril 10 MG TAB PO SCH (09:00)
[2022-06-09] MEDS: Multivitamins, Adult 10 ML, TRACE ELEMENT CONCENTRATE 1 ML in CLINIMIX E 5/20 2,000 ML IV SCH (15:02)
[2022-06-09] MEDS: clonazePAM 1 MG TAB PO PRN (21:26)
[2022-06-09] MEDS: Melatonin 3 MG TAB PO PRN (21:26)
[2022-06-10 06:46] LABS: #Eosinphils 0.4 thou/uL (0.0-0.7); #Lymphocytes 1.9 thou/uL (1.20-3.40); #Neutrophils 7.5 thou/uL (1.40-6.50); %Basophils 0.1 % (0.0-1.0); %Eosinophils 3.4 % (0.0-10.0); %Lymphocytes 17.8 % (21.0-51.0); %Monocytes 9.5 % (0.0-10.0); %Neutrophils 69.3 % (42.0-75.0); Hemoglobin 9.2 g/dL (14.0-18.0); Mean Corpuscular HGB CONC 31.8 g/dL (32.0-36.0); Mean Corpuscular Hemoglobin 29.6 pg (27.0-31.0); Mean Corpuscular Volume 92.9 fL (78.0-98.0); Mean Platelet Volume 7.2 fL (7.4-10.4); Platelet Count 739 thou/uL (130-400); RBC Distribution Width 14.2 % (11.5-14.5); Red Blood Cell (RBC) Count 3.12 mill/uL (4.70-6.10); White Blood Cell (WBC) Count 10.8 thou/uL (4.8-10.8)
[2022-06-10 06:53] LABS: INR-International Normal Ratio 1.1; PTT 38.4 sec (22.9-36.1); Prothrombin Time 14.5 sec (12.0-14.7)
[2022-06-10 07:09] LABS: ALT (SGPT) 10 U/L (8-55); AST (SGOT) 13 U/L (5-34); Albumin 2.5 g/dL (3.5-5.0); Alkaline Phosphatase 49 U/L (40-110); Anion Gap 11 mmol/L (10-20); BUN (Urea Nitrogen) 17 mg/dL (8.4-25.7); Bilirubin, Total 0.2 mg/dL (0.2-1.2); Calc. Creatinine Clearance 135 mL/min (70-130); Calcium 8.3 mg/dL (7.8-10.44); Carbon Dioxide 31 mmol/L (22-29); Cardiac Risk 2.9 (Less than 4.5); Chloride 102 mmol/L (98-107); Cholesterol 75 mg/dl (< 200 Desired); Estimated GFR 116; Globulin 3.7 g/dL (2.4-3.5); Glucose 148 mg/dL (70-105); HDL Cholesterol 26 mg/dL (>60 Neg Risk); LDL Cholesterol, Calculated 38 mg/dL; Magnesium 1.8 mg/dL (1.6-2.6); Potassium 3.9 mmol/L (3.5-5.1); Protein, Total 6.2 g/dL (6.0-8.3); Sodium 140 mmol/L (136-145); Triglycerides 57 mg/dL (Less than 150)
[2022-06-10 07:16] LABS: Phosphorus 3.2 mg/dL (2.3-4.7)
[2022-06-10] MEDS: Amlodipine 10 MG TAB PO SCH (09:43)
[2022-06-10] MEDS: cefTRIAXone\\ROCEPHIN 2 GM in Sodium Chloride 0.9% 100 ML IVPB SCH (09:43)
[2022-06-10] MEDS: Lisinopril 20 MG TAB PO SCH (09:43)
[2022-06-10] MEDS: FLUoxetine HCl 20 MG CAP PO SCH (09:43)
[2022-06-10] MEDS: Enoxaparin Sodium 40 MG/0.4 ML SYRINGE SC SCH (09:43)
[2022-06-10] MEDS: Pantoprazole 40 MG VIAL IVP SCH ×2 (09:43→20:13)
[2022-06-10] MEDS: Lactated Ringer's 1,000 ML IV SCH (09:48)
[2022-06-10] MEDS: Multivitamins, Adult 10 ML, TRACE ELEMENT CONCENTRATE 1 ML in CLINIMIX E 5/20 2,000 ML IV SCH (13:43)
[2022-06-10] MEDS: clonazePAM 1 MG TAB PO PRN (21:57)
[2022-06-10] MEDS: Melatonin 3 MG TAB PO PRN (21:59)
[2022-06-11 06:21] LABS: #Basophils 0.1 thou/uL (0.0-0.2); #Eosinphils 0.3 thou/uL (0.0-0.7); #Lymphocytes 1.7 thou/uL (1.20-3.40); #Monocytes 0.9 thou/uL (0.11-0.59); #Neutrophils 5.4 thou/uL (1.40-6.50); %Basophils 0.7 % (0.0-1.0); %Eosinophils 3.8 % (0.0-10.0); %Lymphocytes 20.8 % (21.0-51.0); %Monocytes 10.7 % (0.0-10.0); %Neutrophils 64.1 % (42.0-75.0); Hemoglobin 8.8 g/dL (14.0-18.0); Mean Corpuscular HGB CONC 30.3 g/dL (32.0-36.0); Mean Corpuscular Hemoglobin 28.8 pg (27.0-31.0); Mean Platelet Volume 7.3 fL (7.4-10.4); Platelet Count 691 thou/uL (130-400); RBC Distribution Width 14.5 % (11.5-14.5); Red Blood Cell (RBC) Count 3.06 mill/uL (4.70-6.10); White Blood Cell (WBC) Count 8.4 thou/uL (4.8-10.8)
[2022-06-11 06:34] LABS: INR-International Normal Ratio 1.2; PTT 37.2 sec (22.9-36.1)
[2022-06-11 06:44] LABS: ALT (SGPT) 16 U/L (8-55); AST (SGOT) 17 U/L (5-34); Albumin 2.4 g/dL (3.5-5.0); Alkaline Phosphatase 49 U/L (40-110); Anion Gap 10 mmol/L (10-20); BUN (Urea Nitrogen) 17 mg/dL (8.4-25.7); Bilirubin, Total 0.2 mg/dL (0.2-1.2); Calc. Creatinine Clearance 139 mL/min (70-130); Calcium 8.1 mg/dL (7.8-10.44); Carbon Dioxide 32 mmol/L (22-29); Chloride 102 mmol/L (98-107); Cholesterol 73 mg/dl (< 200 Desired); Estimated GFR 117; Globulin 3.6 g/dL (2.4-3.5); Glucose 123 mg/dL (70-105); HDL Cholesterol 24 mg/dL (>60 Neg Risk); LDL Cholesterol, Calculated 37 mg/dL; Magnesium 1.8 mg/dL (1.6-2.6); Phosphorus 3.2 mg/dL (2.3-4.7); Potassium 4.1 mmol/L (3.5-5.1); Sodium 140 mmol/L (136-145); Triglycerides 58 mg/dL (Less than 150)
[2022-06-11] MEDS: Enoxaparin Sodium 40 MG/0.4 ML SYRINGE SC SCH (08:38)
[2022-06-11] MEDS: cefTRIAXone\\ROCEPHIN 2 GM in Sodium Chloride 0.9% 100 ML IVPB SCH (08:38)
[2022-06-11] MEDS: Pantoprazole 40 MG VIAL IVP SCH ×2 (08:39→20:37)
[2022-06-11] MEDS: Amlodipine 10 MG TAB PO SCH (08:39)
[2022-06-11] MEDS: FLUoxetine HCl 20 MG CAP PO SCH (08:39)
[2022-06-11] MEDS: Lisinopril 20 MG TAB PO SCH (08:39)
[2022-06-11] MEDS ORDERED: Lisinopril 20 MG TAB PO SCH ×2 (09:12→09:15)
[2022-06-11] MEDS: [UNRECOGNIZED DRUG - OTHER] IV SCH (15:18)
[2022-06-11] MEDS: MULTIVITAMINS IV SCH (15:18)
[2022-06-11] MEDS: TRACE ELEMENT IV SCH (15:18)
[2022-06-11] MEDS: FAT EMULSION IV SCH (15:18)
[2022-06-11] MEDS: clonazePAM 1 MG TAB PO PRN (20:37)
[2022-06-11] MEDS: Melatonin 3 MG TAB PO PRN (20:37)
[2022-06-12] MEDS: FLUoxetine HCl 20 MG CAP PO SCH (08:26)
[2022-06-12] MEDS: Enoxaparin Sodium 40 MG/0.4 ML SYRINGE SC SCH (08:26)
[2022-06-12] MEDS: Lisinopril 20 MG TAB PO SCH (08:26)
[2022-06-12] MEDS: Amlodipine 10 MG TAB PO SCH (08:26)
[2022-06-12] MEDS: Pantoprazole 40 MG VIAL IVP SCH ×2 (08:27→20:40)
[2022-06-12] MEDS: cefTRIAXone\\ROCEPHIN 2 GM in Sodium Chloride 0.9% 100 ML IVPB SCH (08:27)
[2022-06-12] MEDS: Multivitamins, Adult 10 ML, TRACE ELEMENT CONCENTRATE 1 ML in CLINIMIX E 5/20 2,000 ML IV SCH (14:53)
[2022-06-12] MEDS: clonazePAM 1 MG TAB PO PRN (20:40)
[2022-06-12] MEDS: Melatonin 3 MG TAB PO PRN (20:40)
[2022-06-13 06:35] LABS: #Eosinphils 0.2 thou/uL (0.0-0.7); #Lymphocytes 1.8 thou/uL (1.20-3.40); #Monocytes 1.2 thou/uL (0.11-0.59); #Neutrophils 5.9 thou/uL (1.40-6.50); %Basophils 0.3 % (0.0-1.0); %Eosinophils 1.9 % (0.0-10.0); %Lymphocytes 19.5 % (21.0-51.0); %Monocytes 13.4 % (0.0-10.0); %Neutrophils 64.8 % (42.0-75.0); Hemoglobin 8.3 g/dL (14.0-18.0); Mean Corpuscular HGB CONC 30.7 g/dL (32.0-36.0); Mean Corpuscular Hemoglobin 28.7 pg (27.0-31.0); Mean Corpuscular Volume 93.4 fL (78.0-98.0); Mean Platelet Volume 7.3 fL (7.4-10.4); Platelet Count 590 thou/uL (130-400); RBC Distribution Width 14.9 % (11.5-14.5); Red Blood Cell (RBC) Count 2.88 mill/uL (4.70-6.10); White Blood Cell (WBC) Count 9.1 thou/uL (4.8-10.8)
[2022-06-13 06:48] LABS: Anion Gap 11 mmol/L (10-20); BUN (Urea Nitrogen) 16 mg/dL (8.4-25.7); Calc. Creatinine Clearance 150 mL/min (70-130); Calcium 7.5 mg/dL (7.8-10.44); Carbon Dioxide 28 mmol/L (22-29); Chloride 105 mmol/L (98-107); Estimated GFR 120; Glucose 114 mg/dL (70-105); Potassium 3.6 mmol/L (3.5-5.1); Sodium 140 mmol/L (136-145)
[2022-06-13] MEDS: Pantoprazole 40 MG VIAL IVP SCH ×2 (09:18→20:40)
[2022-06-13] MEDS: FLUoxetine HCl 20 MG CAP PO SCH (09:18)
[2022-06-13] MEDS: Amlodipine 10 MG TAB PO SCH (09:18)
[2022-06-13] MEDS: Lisinopril 20 MG TAB PO SCH (09:18)
[2022-06-13] MEDS: cefTRIAXone\\ROCEPHIN 2 GM in Sodium Chloride 0.9% 100 ML IVPB SCH (09:19)
[2022-06-13] MEDS: Enoxaparin Sodium 40 MG/0.4 ML SYRINGE SC SCH (09:19)
[2022-06-13] MEDS: FAT EMULSION IV SCH (14:48)
[2022-06-13] MEDS: TRACE ELEMENT IV SCH (14:48)
[2022-06-13] MEDS: [UNRECOGNIZED DRUG - OTHER] IV SCH (14:48)
[2022-06-13] MEDS: MULTIVITAMINS IV SCH (14:48)
[2022-06-13] MEDS: Melatonin 3 MG TAB PO PRN (20:40)
[2022-06-13] MEDS: clonazePAM 1 MG TAB PO PRN (20:40)
[2022-06-14 07:16] LABS: #Eosinphils 0.3 thou/uL (0.0-0.7); #Monocytes 1.3 thou/uL (0.11-0.59); #Neutrophils 5.8 thou/uL (1.40-6.50); %Basophils 0.1 % (0.0-1.0); %Eosinophils 2.7 % (0.0-10.0); %Lymphocytes 21.4 % (21.0-51.0); %Monocytes 13.5 % (0.0-10.0); %Neutrophils 62.3 % (42.0-75.0); Hemoglobin 8.5 g/dL (14.0-18.0); Mean Corpuscular HGB CONC 30.9 g/dL (32.0-36.0); Mean Corpuscular Hemoglobin 28.8 pg (27.0-31.0); Mean Corpuscular Volume 93.1 fL (78.0-98.0); Mean Platelet Volume 7.1 fL (7.4-10.4); Platelet Count 577 thou/uL (130-400); RBC Distribution Width 14.6 % (11.5-14.5); Red Blood Cell (RBC) Count 2.97 mill/uL (4.70-6.10); White Blood Cell (WBC) Count 9.3 thou/uL (4.8-10.8)
[2022-06-14] MEDS: cefTRIAXone\\ROCEPHIN 2 GM in Sodium Chloride 0.9% 100 ML IVPB SCH (09:36)
[2022-06-14] MEDS: Enoxaparin Sodium 40 MG/0.4 ML SYRINGE SC SCH (09:41)
[2022-06-14] MEDS: FLUoxetine HCl 20 MG CAP PO SCH (09:43)
[2022-06-14] MEDS: Amlodipine 10 MG TAB PO SCH (09:43)
[2022-06-14] MEDS: Lisinopril 20 MG TAB PO SCH (09:43)
[2022-06-14] MEDS: Pantoprazole 40 MG VIAL IVP SCH ×2 (09:47→21:24)
[2022-06-14] MEDS ORDERED: FLUoxetine HCl 20 MG CAP PO SCH ×3 (10:25→12:00)
[2022-06-14] MEDS: Lactated Ringer's 1,000 ML IV SCH (12:44)
[2022-06-14] MEDS: Multivitamins, Adult 10 ML, TRACE ELEMENT CONCENTRATE 1 ML in CLINIMIX E 5/20 2,000 ML IV SCH (14:29)
[2022-06-14] MEDS: clonazePAM 1 MG TAB PO PRN (21:24)
[2022-06-14] MEDS: Melatonin 3 MG TAB PO PRN (21:24)
[2022-06-15] MEDS: Lisinopril 20 MG TAB PO SCH (08:03)
[2022-06-15] MEDS: Enoxaparin Sodium 40 MG/0.4 ML SYRINGE SC SCH (08:03)
[2022-06-15] MEDS: Amlodipine 10 MG TAB PO SCH (08:03)
[2022-06-15] MEDS: Pantoprazole 40 MG VIAL IVP SCH (08:04)
[2022-06-15] MEDS: FLUoxetine HCl 20 MG CAP PO SCH (08:04)
[2022-06-15] MEDS: MULTIVITAMINS IV SCH (14:01)
[2022-06-15] MEDS: [UNRECOGNIZED DRUG - OTHER] IV SCH (14:01)
[2022-06-15] MEDS: TRACE ELEMENT IV SCH (14:01)
[2022-06-15] MEDS: FAT EMULSION IV SCH (14:01)
[2022-06-15] MEDS: clonazePAM 1 MG TAB PO PRN (22:07)
[2022-06-15] MEDS: Melatonin 3 MG TAB PO PRN (22:07)
[2022-06-16] MEDS: Lisinopril 20 MG TAB PO SCH (09:43)
[2022-06-16] MEDS: Amlodipine 10 MG TAB PO SCH (09:43)
[2022-06-16] MEDS: Enoxaparin Sodium 40 MG/0.4 ML SYRINGE SC SCH (09:44)
[2022-06-16] MEDS: FLUoxetine HCl 20 MG CAP PO SCH (09:44)
[2022-06-16] MEDS: Lactated Ringer's 1,000 ML IV SCH (10:04)
[2022-06-16] MEDS: Multivitamins, Adult 10 ML, TRACE ELEMENT CONCENTRATE 1 ML in CLINIMIX E 5/20 2,000 ML IV SCH (15:16)
[2022-06-16] MEDS: Melatonin 3 MG TAB PO PRN (21:14)
[2022-06-16] MEDS: clonazePAM 1 MG TAB PO PRN (21:14)
[2022-06-17] MEDS: FLUoxetine HCl 20 MG CAP PO SCH (08:40)
[2022-06-17] MEDS: Enoxaparin Sodium 40 MG/0.4 ML SYRINGE SC SCH (08:40)
[2022-06-17] MEDS: Lisinopril 20 MG TAB PO SCH (08:40)
[2022-06-17] MEDS: Amlodipine 10 MG TAB PO SCH (08:40)
[2022-06-17] MEDS: Multivitamins, Adult 10 ML, TRACE ELEMENT CONCENTRATE 1 ML in CLINIMIX E 5/20 2,000 ML IV SCH (14:07)
[2022-06-17] MEDS: Lactated Ringer's 1,000 ML IV SCH (14:08)
[2022-06-17] MEDS: clonazePAM 1 MG TAB PO PRN (22:59)
[2022-06-17] MEDS: Melatonin 3 MG TAB PO PRN (22:59)
[2022-06-18 05:25] LABS: Anion Gap 12 mmol/L (10-20); Calc. Creatinine Clearance 137 mL/min (70-130); Calcium 8.5 mg/dL (7.8-10.44); Carbon Dioxide 26 mmol/L (22-29); Chloride 102 mmol/L (98-107); Estimated GFR 117; Glucose 99 mg/dL (70-105); Potassium 4.1 mmol/L (3.5-5.1); Sodium 136 mmol/L (136-145)
[2022-06-18 05:42] LABS: BUN (Urea Nitrogen) 18 mg/dL (8.4-25.7)
[2022-06-18] MEDS: Amlodipine 10 MG TAB PO SCH (10:00)
[2022-06-18] MEDS: Enoxaparin Sodium 40 MG/0.4 ML SYRINGE SC SCH (10:00)
[2022-06-18] MEDS: Lisinopril 20 MG TAB PO SCH (10:00)
[2022-06-18] MEDS: FLUoxetine HCl 20 MG CAP PO SCH (10:00)
[2022-06-18 13:58] VITALS: BMI 20.6
[2022-06-18] MEDS: clonazePAM 1 MG TAB PO PRN (23:37)
[2022-06-18] MEDS: Melatonin 3 MG TAB PO PRN (23:37)
[2022-06-19] MEDS: Enoxaparin Sodium 40 MG/0.4 ML SYRINGE SC SCH (08:33)
[2022-06-19] MEDS: FLUoxetine HCl 20 MG CAP PO SCH (08:33)
[2022-06-19] MEDS: Amlodipine 10 MG TAB PO SCH (08:33)
[2022-06-19] MEDS: Lisinopril 20 MG TAB PO SCH (08:36)
[2022-06-19 08:50] VITALS: BP 104/68; TEMP 98.5
== END 2022-06-19 17:00 | disposition home health service (06) | DRG 673 ==
LOC: ERS 16:22 → T4-A 18:54
PROVIDERS: ADMIT Family Medicine; ATTEND Internal Medicine
PROC: 3E03329 Introduction of Other Anti-infective into Peripheral Vein, Percutaneous Approach (ICD-10-PCS; 2022-05-29)
PROC: 0D1N4Z4 Bypass Sigmoid Colon to Cutaneous, Percutaneous Endoscopic Approach (ICD-10-PCS; principal; 2022-06-01)
PROC: 0DN80ZZ Release Small Intestine, Open Approach (ICD-10-PCS; 2022-06-05)
PROC: 0DBE0ZZ Excision of Large Intestine, Open Approach (ICD-10-PCS; 2022-06-05)
PROC: 02HV33Z Insertion of Infusion Device into Superior Vena Cava, Percutaneous Approach (ICD-10-PCS; 2022-06-05)
PROC: 0D9670Z Drainage of Stomach with Drainage Device, Via Natural or Artificial Opening (ICD-10-PCS; 2022-06-06)
PROC: 3E04329 Introduction of Other Anti-infective into Central Vein, Percutaneous Approach (ICD-10-PCS; 2022-06-07)
PROC: 3E0436Z Introduction of Nutritional Substance into Central Vein, Percutaneous Approach (ICD-10-PCS; 2022-06-08)
DX: T83.511A Infection and inflammatory reaction due to indwelling urethral catheter, initial encounter (principal); A41.4 Sepsis due to anaerobes; L89.154 Pressure ulcer of sacral region, stage 4; E43 Unspecified severe protein-calorie malnutrition; G82.20 Paraplegia, unspecified; K55.1 Chronic vascular disorders of intestine; Q41.1 Congenital absence, atresia and stenosis of jejunum; Q43.8 Other specified congenital malformations of intestine; M46.28 Osteomyelitis of vertebra, sacral and sacrococcygeal region; N30.00 Acute cystitis without hematuria; K94.03 Colostomy malfunction; K56.7 Ileus, unspecified; Z20.822 Contact with and (suspected) exposure to COVID-19; N31.9 Neuromuscular dysfunction of bladder, unspecified; F17.210 Nicotine dependence, cigarettes, uncomplicated; F12.10 Cannabis abuse, uncomplicated; K52.9 Noninfective gastroenteritis and colitis, unspecified; E87.6 Hypokalemia; D50.9 Iron deficiency anemia, unspecified; I10 Essential (primary) hypertension; F32.A Depression, unspecified; Y84.6 Urinary catheterization as the cause of abnormal reaction of the patient, or of later complication, without mention of misadventure at the time of the procedure; D75.839 Thrombocytosis, unspecified; Y83.3 Surgical operation with formation of external stoma as the cause of abnormal reaction of the patient, or of later complication, without mention of misadventure at the time of the procedure; Z74.01 Bed confinement status; Z88.2 Allergy status to sulfonamides; Z88.1 Allergy status to other antibiotic agents; Z91.041 Radiographic dye allergy status; Z79.899 Other long term (current) drug therapy; T14.8XXS Other injury of unspecified body region, sequela; W34.00XS Accidental discharge from unspecified firearms or gun, sequela; Z98.890 Other specified postprocedural states; Z71.6 Tobacco abuse counseling; Z82.49 Family history of ischemic heart disease and other diseases of the circulatory system; Z68.20 Body mass index [BMI] 20.0-20.9, adult
CPT/HCPCS: 36415; 36416; 51702; 71045; 72192; 74018; 74019; 74022; 74250; 80048; 80053; 80061; 80306; 81003; 81015; 83605; 83630; 83690; 83735; 84100; 84134; 84145; 85025; 85610; 85730; 87040; 87077; 87086; 87149; 87186; 87324; 87328; 87329; 87449; 87505; 87798; 88304; 94760; 96365; 96367; 96375; 97139; A4649; C1776; C9113; J0360; J0696; J1100; J1170; J1650; J1885; J2001; J2250; J2370; J2405; J2543; J2704; J3370; J3490; J7050; J7120; P9045; Q9963; S0020; U0003; U0005

== ENCOUNTER 2022-08-13 17:30 | Emergency (ER) | payer MEDICARE, MEDICAID ==
[2022-08-13 19:11] LABS: #Eosinphils 0.3 thou/uL (0.0-0.7); #Lymphocytes 3.4 thou/uL (1.20-3.40); #Monocytes 0.9 thou/uL (0.11-0.59); #Neutrophils 4.5 thou/uL (1.40-6.50); %Basophils 0.5 % (0.0-1.0); %Eosinophils 3.1 % (0.0-10.0); %Monocytes 9.8 % (0.0-10.0); %Neutrophils 49.5 % (42.0-75.0); Hemoglobin 11.4 g/dL (14.0-18.0); Mean Corpuscular HGB CONC 29.4 g/dL (32.0-36.0); Mean Corpuscular Hemoglobin 26.7 pg (27.0-31.0); Mean Corpuscular Volume 90.6 fL (78.0-98.0); Mean Platelet Volume 7.5 fL (7.4-10.4); Platelet Count 454 thou/uL (130-400); RBC Distribution Width 16.7 % (11.5-14.5); Red Blood Cell (RBC) Count 4.27 mill/uL (4.70-6.10); White Blood Cell (WBC) Count 9.1 thou/uL (4.8-10.8)
[2022-08-13 19:26] LABS: ALT (SGPT) 8 U/L (8-55); AST (SGOT) 10 U/L (5-34); Albumin 3.7 g/dL (3.5-5.0); Alkaline Phosphatase 63 U/L (40-110); Anion Gap 14 mmol/L (10-20); BUN (Urea Nitrogen) 17 mg/dL (8.4-25.7); Bilirubin, Total 0.2 mg/dL (0.2-1.2); Calc. Creatinine Clearance 0 mL/min (70-130); Calcium 8.8 mg/dL (7.8-10.44); Carbon Dioxide 30 mmol/L (22-29); Chloride 102 mmol/L (98-107); Estimated GFR 93; Globulin 4.5 g/dL (2.4-3.5); Glucose 72 mg/dL (70-105); Potassium 3.3 mmol/L (3.5-5.1); Protein, Total 8.2 g/dL (6.0-8.3); Sodium 143 mmol/L (136-145)
[2022-08-13 19:27] LABS: Hypochromia SLIGHT = 6-15 cells (100X) (0-5/hpf); MDiff Complete? YES; Platelet Morphology Comment Appears Increased; Polychromasia SLIGHT = 2-3 cells (100X) (0-2/hpf); Tear Drops SLIGHT = 2-5 cells (100X) (0-1/hpf)
[2022-08-13 21:52] LABS: Bacteria/HPF 4+ HPF (None Seen); Bilirubin Negative (Negative); Blood, Urine 1+ (Negative); Clarity Turbid (Clear); Glucose, Urine (Dipstick) Normal (Negative); Ketone, Urine Negative (Negative); Leukocyte 500 Leu/uL (Negative); Nitrite Negative (Negative); Protein, Urine (Dipstick) 100 mg/dL (Neg-Trace); Specific Gravity, Urine 1.028 (1.002-1.036); Urobilinogen Normal mg/dL (Less than 2); WBC/HPF Greater than 50 HPF (0-3); pH, Urine 6.5 (5.0-9.0)
[2022-08-13] MEDS ORDERED: cefTRIAXone\\ROCEPHIN 1 GM VIAL ONE ×2 (22:04→22:09)
[2022-08-13] MEDS ORDERED: Lidocaine 2% PF 5 ML VIAL ONE (22:09)
== END 2022-08-13 23:50 | disposition home or self-care (01) ==
LOC: ERS 17:30
DX: N39.0 Urinary tract infection, site not specified (principal); I10 Essential (primary) hypertension; F17.210 Nicotine dependence, cigarettes, uncomplicated
CPT/HCPCS: 36415; 80053; 81003; 81015; 83605; 83735; 85025; 87040; 87077; 87086; 87186; 93005; 96372; J0696; J2001

== ENCOUNTER 2024-07-17 14:09 | Inpatient (IN) | payer MEDICARE, MEDICAID ==
[2024-07-17 15:11] LABS: #Basophils 0.04 10x3/uL (0.0-0.2); %Basophils 0.2 % (0.0-1.0); %Eosinophils 0.3 % (0.0-10.0); %Lymphocytes 7.5 % (21.0-51.0); %Monocytes 8.4 % (0.0-10.0); %Neutrophils 82.8 % (42.0-75.0); Hematocrit 30.1 % (42.0-52.0); Hemoglobin 9.2 g/dL (14.0-18.0); Mean Corpuscular HGB CONC 30.6 g/dL (32.0-36.0); Mean Corpuscular Hemoglobin 21.7 pg (27.0-31.0); Mean Platelet Volume 8.7 fL (7.4-10.4); Platelet Count 540 10x3/uL (130-400); RBC Distribution Width 20.1 % (11.5-14.5); Red Blood Cell (RBC) Count 4.24 mill/uL (4.70-6.10)
[2024-07-17 15:13] LABS: ALT (SGPT) 8 U/L (8-55); AST (SGOT) 11 U/L (5-34); Albumin 2.4 g/dL (3.5-5.0); Alkaline Phosphatase 77 U/L (40-110); Anion Gap 15 mmol/L (10-20); BUN (Urea Nitrogen) 10 mg/dL (8.4-25.7); Bilirubin, Total 0.4 mg/dL (0.2-1.2); Calc. Creatinine Clearance 0 mL/min (70-130); Calcium 8.1 mg/dL (7.8-10.44); Carbon Dioxide 23 mmol/L (22-29); Chloride 104 mmol/L (98-107); Estimated GFR 116; Globulin 4.2 g/dL (2.4-3.5); Glucose 115 mg/dL (70-105); Potassium 4.1 mmol/L (3.5-5.1); Protein, Total 6.6 g/dL (6.0-8.3); Sodium 138 mmol/L (136-145)
[2024-07-17 15:21] LABS: Troponin I Less than 0.010 ng/mL (< 0.028)
[2024-07-17] MEDS ORDERED: Sodium Chloride 0.9% 100 ML ONE (15:50)
[2024-07-17] MEDS ORDERED: Cefepime 2 GM VIAL ONE (15:50)
[2024-07-17 15:59] LABS: Hypochromia SLIGHT = 6-15 cells HPF (0-5); Microcytosis SLIGHT = 6-15 cells HPF (0-5); Platelet Adequacy Comment Platelets Increased; Polychromasia SLIGHT = 2-3 cells HPF (0-2)
[2024-07-17] MEDS ORDERED: Vancomycin 1 GM/200 ML (FROZEN) BAG ONE (16:54)
[2024-07-17 17:27] LABS: Bacteria/HPF 2+ HPF (None Seen); Bilirubin Negative (Negative); Blood, Urine 1+ (Negative); CAUTI Indications for Culture Alt mental st,lethar; Clarity Turbid (Clear); Glucose, Urine (Dipstick) Normal (Negative); Ketone, Urine Negative (Negative); Leukocyte 500 Leu/uL (Negative); Nitrite Negative (Negative); Protein, Urine (Dipstick) 30 mg/dL (Neg-Trace); Specific Gravity, Urine 1.013 (1.002-1.036); Squamous Epithelial None Seen HPF (0-3); Urobilinogen Normal mg/dL (Less than 2); WBC/HPF Greater than 50 HPF (0-3)
[2024-07-17 17:30] LABS: Urine Culture Reflex Yes Yes
[2024-07-17 17:35] LABS: Amphetamine Detected (NotDetected); Barbiturates Screen Not Detected (NotDetected); Benzodiazepine Screen Not Detected (NotDetected); Cocaine Metabolite Screen Not Detected (NotDetected); Methadone Not Detected (NotDetected); Methamphetamine Detected (NotDetected); Opiate Screen Not Detected (NotDetected); Oxycodone Screen Not Detected (NotDetected); Phencyclidine (PCP) Not Detected (NotDetected); THC/Cannabinoid Screen Detected (NotDetected); Tricyclic Screen Not Detected (NotDetected)
[2024-07-17 18:47] LABS: Bacteria/HPF 3+ HPF (None Seen); Bilirubin Negative (Negative); Blood, Urine 2+ (Negative); CAUTI Indications for Culture Alt mental st,lethar; Clarity Extra Turbid (Clear); Glucose, Urine (Dipstick) Normal (Negative); Ketone, Urine Trace mg/dL (Negative); Leukocyte 500 Leu/uL (Negative); Nitrite 2+ (Negative); Protein, Urine (Dipstick) 50 mg/dL (Neg-Trace); RBC/HPF 21-50 HPF (0-3); Specific Gravity, Urine 1.014 (1.002-1.036); Urobilinogen Normal mg/dL (Less than 2); WBC/HPF Greater than 50 HPF (0-3); pH, Urine 6.5 (5.0-9.0)
[2024-07-17] MEDS ORDERED: hydrALAZINE 20 MG/ML VIAL SLOW IVP PRN ×2 (18:58→19:23)
[2024-07-17] MEDS: Lactated Ringer's 1,000 ML IV SCH (19:02)
[2024-07-17] MEDS: Nicotine 14 MG PATCH TD SCH (19:02)
[2024-07-17 19:12] LABS: Acetaminophen Less than 10 mcg/mL (10.0-30.0); Alcohol Less than 10.0 mg/dL (Less than 10); Salicylate Less than 8.0 mg/dL (15.0-30.0)
[2024-07-17 20:45] VITALS: BMI 18.0
[2024-07-17] MEDS: Carvedilol 3.125 MG TAB PO SCH (21:45)
[2024-07-18] MEDS: Vancomycin (BATCH) 1.5 GM in Premix 1 BAG IVPB SCH (00:21)
[2024-07-18] MEDS: Cefepime 2 GM in Sodium Chloride 0.9% 100 ML IVPB SCH (03:34)
[2024-07-18 05:47] LABS: #Basophils 0.05 10x3/uL (0.0-0.2); %Basophils 0.3 % (0.0-1.0); %Eosinophils 1.4 % (0.0-10.0); %Monocytes 9.4 % (0.0-10.0); %Neutrophils 75.4 % (42.0-75.0); Hematocrit 29.7 % (42.0-52.0); Hemoglobin 8.8 g/dL (14.0-18.0); Mean Corpuscular HGB CONC 29.6 g/dL (32.0-36.0); Mean Corpuscular Hemoglobin 21.3 pg (27.0-31.0); Mean Corpuscular Volume 71.9 fL (78.0-98.0); Mean Platelet Volume 8.6 fL (7.4-10.4); Platelet Count 556 10x3/uL (130-400); RBC Distribution Width 20.1 % (11.5-14.5); Red Blood Cell (RBC) Count 4.13 mill/uL (4.70-6.10)
[2024-07-18 06:00] LABS: Vancomycin, Random 27.1 ug/mL (See Comment)
[2024-07-18 06:07] LABS: ALT (SGPT) 11 U/L (8-55); AST (SGOT) 7 U/L (5-34); Albumin 2.1 g/dL (3.5-5.0); Alkaline Phosphatase 69 U/L (40-110); Anion Gap 13 mmol/L (10-20); BUN (Urea Nitrogen) 9 mg/dL (8.4-25.7); Bilirubin, Total 0.3 mg/dL (0.2-1.2); Calc. Creatinine Clearance 124 mL/min (70-130); Calcium 7.9 mg/dL (7.8-10.44); Carbon Dioxide 22 mmol/L (22-29); Chloride 107 mmol/L (98-107); Estimated GFR 116; Globulin 3.8 g/dL (2.4-3.5); Glucose 87 mg/dL (70-105); Protein, Total 5.9 g/dL (6.0-8.3); Sodium 138 mmol/L (136-145)
[2024-07-18] MEDS ORDERED: Enoxaparin 40 MG (0.4 mL) SYRINGE SC SCH (09:00)
[2024-07-18] MEDS ORDERED: hydrALAZINE 20 MG/ML VIAL SLOW IVP PRN (09:28)
[2024-07-18] MEDS ORDERED: Diclofenac 1% 50 GM TOPICAL GEL TP PRN (10:38)
[2024-07-18] MEDS ORDERED: HYDROcodone/Acetaminophen 7.5/325 mg Tablet PO PRN (10:38)
[2024-07-18] MEDS: FLUoxetine HCl 20 MG CAP PO SCH (11:14)
[2024-07-18] MEDS: Magnesium Oxide 400 MG TAB PO SCH (11:14)
[2024-07-18] MEDS: Lisinopril 20 MG TAB PO SCH (11:14)
[2024-07-18] MEDS: Amlodipine 5 MG TAB PO SCH (11:14)
[2024-07-18] MEDS ORDERED: diphenhydrAMINE 50 MG CAP PO PRN (11:20)
[2024-07-18] MEDS ORDERED: predniSONE 50 MG TAB PO PRN (11:23)
[2024-07-18] MEDS: Vancomycin (BATCH) 1.25 GM in Premix 1 BAG IVPB SCH (13:17)
[2024-07-18] MEDS: Dicyclomine 20 MG TAB PO SCH (13:27)
[2024-07-18] MEDS: predniSONE 50 MG TAB PO SCH (20:53)
[2024-07-18] MEDS: Senokot S 8.6-50 MG TAB PO SCH (20:53)
[2024-07-18] MEDS: Cyclobenzaprine 10 MG TAB PO PRN (20:55)
[2024-07-19] MEDS: predniSONE 50 MG TAB PO SCH ×2 (03:03→08:31)
[2024-07-19 06:30] LABS: #Basophils Less than 0.03 10x3/uL (0.0-0.2); #Eosinphils Less than 0.03 10x3/uL (0.0-0.7); %Basophils 0.1 % (0.0-1.0); %Lymphocytes 5.5 % (21.0-51.0); %Monocytes 0.5 % (0.0-10.0); %Neutrophils 92.7 % (42.0-75.0); Hematocrit 33.9 % (42.0-52.0); Hemoglobin 10.1 g/dL (14.0-18.0); Mean Corpuscular HGB CONC 29.8 g/dL (32.0-36.0); Mean Corpuscular Hemoglobin 21.5 pg (27.0-31.0); Mean Corpuscular Volume 72.1 fL (78.0-98.0); Mean Platelet Volume 8.8 fL (7.4-10.4); Platelet Count 664 10x3/uL (130-400); RBC Distribution Width 20.4 % (11.5-14.5)
[2024-07-19 06:42] LABS: ALT (SGPT) 6 U/L (8-55); AST (SGOT) 9 U/L (5-34); Albumin 2.1 g/dL (3.5-5.0); Alkaline Phosphatase 74 U/L (40-110); Anion Gap 13 mmol/L (10-20); BUN (Urea Nitrogen) 7 mg/dL (8.4-25.7); Bilirubin, Total 0.1 mg/dL (0.2-1.2); Calc. Creatinine Clearance 116 mL/min (70-130); Calcium 8.6 mg/dL (7.8-10.44); Carbon Dioxide 23 mmol/L (22-29); Chloride 106 mmol/L (98-107); Estimated GFR 114; Globulin 5.2 g/dL (2.4-3.5); Glucose 162 mg/dL (70-105); Potassium 4.6 mmol/L (3.5-5.1); Protein, Total 7.3 g/dL (6.0-8.3); Sodium 137 mmol/L (136-145)
[2024-07-19 06:46] LABS: Vancomycin, Random 23.1 ug/mL (See Comment)
[2024-07-19] MEDS: Lisinopril 20 MG TAB PO SCH (08:29)
[2024-07-19] MEDS: Amlodipine 5 MG TAB PO SCH ×2 (08:30→10:18)
[2024-07-19] MEDS: diphenhydrAMINE 25 MG CAP PO SCH (08:31)
[2024-07-19 09:35] VITALS: BMI 18.0
[2024-07-19] MEDS: Polyethylene Glycol 3350 17 GM Packet PO SCH (10:18)
[2024-07-19] MEDS: Magnesium Oxide 400 MG TAB PO SCH (10:18)
[2024-07-19] MEDS ORDERED: Iopamidol-370 76% 500 ML MDV (1 ML CHARGE) ONE (16:03)
[2024-07-20 08:33] LABS: #Basophils 0.04 10x3/uL (0.0-0.2); %Basophils 0.3 % (0.0-1.0); %Eosinophils 0.3 % (0.0-10.0); %Lymphocytes 25.2 % (21.0-51.0); %Monocytes 7.5 % (0.0-10.0); %Neutrophils 66.2 % (42.0-75.0); Hematocrit 29.9 % (42.0-52.0); Hemoglobin 8.9 g/dL (14.0-18.0); Mean Corpuscular HGB CONC 29.8 g/dL (32.0-36.0); Mean Corpuscular Hemoglobin 21.9 pg (27.0-31.0); Mean Corpuscular Volume 73.6 fL (78.0-98.0); Platelet Count 668 10x3/uL (130-400); RBC Distribution Width 20.4 % (11.5-14.5); Red Blood Cell (RBC) Count 4.06 mill/uL (4.70-6.10)
[2024-07-20 08:45] LABS: ALT (SGPT) 6 U/L (8-55); AST (SGOT) 10 U/L (5-34); Alkaline Phosphatase 70 U/L (40-110); Anion Gap 12 mmol/L (10-20); BUN (Urea Nitrogen) 12 mg/dL (8.4-25.7); Bilirubin, Total 0.1 mg/dL (0.2-1.2); Calc. Creatinine Clearance 120 mL/min (70-130); Calcium 8.3 mg/dL (7.8-10.44); Carbon Dioxide 26 mmol/L (22-29); Chloride 104 mmol/L (98-107); Estimated GFR 115; Globulin 4.3 g/dL (2.4-3.5); Glucose 104 mg/dL (70-105); Potassium 4.4 mmol/L (3.5-5.1); Protein, Total 6.3 g/dL (6.0-8.3); Sodium 138 mmol/L (136-145)
[2024-07-20] MEDS: Amlodipine 10 MG TAB PO SCH (09:07)
[2024-07-20] MEDS: Enoxaparin 40 MG (0.4 mL) SYRINGE SC SCH (09:10)
[2024-07-20] MEDS: cefTRIAXone\\ROCEPHIN 2 GM in Sodium Chloride 0.9% 100 ML IVPB SCH (17:28)
[2024-07-21 08:46] LABS: Vancomycin, Random 23.5 ug/mL (See Comment)
[2024-07-21] MEDS: Vancomycin (BATCH) 1.25 GM in Premix 1 BAG IVPB SCH ×2 (15:47→23:49)
[2024-07-22 08:46] LABS: #Basophils 0.04 10x3/uL (0.0-0.2); %Basophils 0.5 % (0.0-1.0); %Eosinophils 3.6 % (0.0-10.0); %Lymphocytes 34.9 % (21.0-51.0); %Monocytes 10.6 % (0.0-10.0); %Neutrophils 50.1 % (42.0-75.0); Hematocrit 33.6 % (42.0-52.0); Mean Corpuscular HGB CONC 29.8 g/dL (32.0-36.0); Mean Corpuscular Hemoglobin 21.8 pg (27.0-31.0); Mean Corpuscular Volume 73.4 fL (78.0-98.0); Mean Platelet Volume 9.2 fL (7.4-10.4); Platelet Count 773 10x3/uL (130-400); RBC Distribution Width 20.8 % (11.5-14.5); Red Blood Cell (RBC) Count 4.58 mill/uL (4.70-6.10)
[2024-07-22 08:57] LABS: ALT (SGPT) 19 U/L (8-55); AST (SGOT) 18 U/L (5-34); Albumin 2.3 g/dL (3.5-5.0); Alkaline Phosphatase 60 U/L (40-110); Anion Gap 14 mmol/L (10-20); BUN (Urea Nitrogen) 18 mg/dL (8.4-25.7); Bilirubin, Total 0.1 mg/dL (0.2-1.2); Calc. Creatinine Clearance 126 mL/min (70-130); Calcium 8.7 mg/dL (7.8-10.44); Carbon Dioxide 27 mmol/L (22-29); Chloride 103 mmol/L (98-107); Estimated GFR 117; Globulin 4.7 g/dL (2.4-3.5); Glucose 94 mg/dL (70-105); Potassium 4.6 mmol/L (3.5-5.1); Sodium 139 mmol/L (136-145)
[2024-07-22] MEDS: Acetaminophen 325 MG TAB PO PRN (20:48)
[2024-07-22] MEDS ORDERED: Magnesium 2 GM/50 ML(in water) 2 GM in Premix 1 BAG IVPB SCH (23:45)
[2024-07-23 06:57] LABS: #Basophils 0.05 10x3/uL (0.0-0.2); %Basophils 0.6 % (0.0-1.0); %Eosinophils 4.3 % (0.0-10.0); %Lymphocytes 38.3 % (21.0-51.0); %Monocytes 8.9 % (0.0-10.0); %Neutrophils 47.5 % (42.0-75.0); Hematocrit 32.2 % (42.0-52.0); Hemoglobin 9.6 g/dL (14.0-18.0); Mean Corpuscular HGB CONC 29.8 g/dL (32.0-36.0); Mean Corpuscular Hemoglobin 21.6 pg (27.0-31.0); Mean Corpuscular Volume 72.4 fL (78.0-98.0); Platelet Count 734 10x3/uL (130-400); Red Blood Cell (RBC) Count 4.45 mill/uL (4.70-6.10)
[2024-07-23] MEDS: clonazePAM 1 MG TAB PO PRN (20:27)
[2024-07-24 06:53] LABS: #Basophils 0.06 10x3/uL (0.0-0.2); %Basophils 0.7 % (0.0-1.0); %Lymphocytes 39.4 % (21.0-51.0); %Monocytes 8.4 % (0.0-10.0); %Neutrophils 46.1 % (42.0-75.0); Hematocrit 32.6 % (42.0-52.0); Hemoglobin 9.6 g/dL (14.0-18.0); Mean Corpuscular HGB CONC 29.4 g/dL (32.0-36.0); Mean Corpuscular Hemoglobin 21.3 pg (27.0-31.0); Mean Corpuscular Volume 72.4 fL (78.0-98.0); Mean Platelet Volume 8.5 fL (7.4-10.4); Platelet Count 747 10x3/uL (130-400); RBC Distribution Width 21.2 % (11.5-14.5)
[2024-07-24 08:56] LABS: ALT (SGPT) 20 U/L (8-55); AST (SGOT) 16 U/L (5-34); Albumin 2.5 g/dL (3.5-5.0); Alkaline Phosphatase 56 U/L (40-110); Anion Gap 12 mmol/L (10-20); BUN (Urea Nitrogen) 19 mg/dL (8.4-25.7); Bilirubin, Total 0.1 mg/dL (0.2-1.2); Calc. Creatinine Clearance 130 mL/min (70-130); Calcium 8.6 mg/dL (7.8-10.44); Carbon Dioxide 24 mmol/L (22-29); Chloride 105 mmol/L (98-107); Estimated GFR 118; Globulin 4.3 g/dL (2.4-3.5); Glucose 96 mg/dL (70-105); Potassium 4.4 mmol/L (3.5-5.1); Protein, Total 6.8 g/dL (6.0-8.3); Sodium 137 mmol/L (136-145)
[2024-07-24] MEDS ORDERED: Lidocaine 1% PF 5 ML VIAL ONE (12:39)
[2024-07-25 06:23] LABS: #Basophils 0.06 10x3/uL (0.0-0.2); %Basophils 0.6 % (0.0-1.0); %Eosinophils 4.7 % (0.0-10.0); %Lymphocytes 32.3 % (21.0-51.0); %Monocytes 10.6 % (0.0-10.0); %Neutrophils 51.5 % (42.0-75.0); Hematocrit 35.9 % (42.0-52.0); Hemoglobin 10.6 g/dL (14.0-18.0); Mean Corpuscular HGB CONC 29.5 g/dL (32.0-36.0); Mean Corpuscular Hemoglobin 21.7 pg (27.0-31.0); Mean Corpuscular Volume 73.4 fL (78.0-98.0); Mean Platelet Volume 8.7 fL (7.4-10.4); Platelet Count 813 10x3/uL (130-400); RBC Distribution Width 21.5 % (11.5-14.5); Red Blood Cell (RBC) Count 4.89 mill/uL (4.70-6.10)
[2024-07-26 05:16] LABS: #Basophils 0.04 10x3/uL (0.0-0.2); %Basophils 0.4 % (0.0-1.0); %Eosinophils 4.8 % (0.0-10.0); %Lymphocytes 30.3 % (21.0-51.0); %Monocytes 13.1 % (0.0-10.0); %Neutrophils 51.1 % (42.0-75.0); Hematocrit 30.6 % (42.0-52.0); Hemoglobin 9.2 g/dL (14.0-18.0); Mean Corpuscular HGB CONC 30.1 g/dL (32.0-36.0); Mean Corpuscular Volume 73.2 fL (78.0-98.0); Mean Platelet Volume 8.8 fL (7.4-10.4); Platelet Count 705 10x3/uL (130-400); RBC Distribution Width 21.3 % (11.5-14.5); Red Blood Cell (RBC) Count 4.18 mill/uL (4.70-6.10)
[2024-07-26 05:22] LABS: Vancomycin, Random 29.6 ug/mL (See Comment)
[2024-07-26 06:55] LABS: ALT (SGPT) 15 U/L (8-55); AST (SGOT) 12 U/L (5-34); Albumin 2.5 g/dL (3.5-5.0); Alkaline Phosphatase 55 U/L (40-110); Anion Gap 14 mmol/L (10-20); BUN (Urea Nitrogen) 27 mg/dL (8.4-25.7); Bilirubin, Total 0.1 mg/dL (0.2-1.2); Calc. Creatinine Clearance 128 mL/min (70-130); Calcium 8.7 mg/dL (7.8-10.44); Carbon Dioxide 23 mmol/L (22-29); Chloride 105 mmol/L (98-107); Estimated GFR 117; Globulin 4.1 g/dL (2.4-3.5); Glucose 98 mg/dL (70-105); Potassium 4.4 mmol/L (3.5-5.1); Protein, Total 6.6 g/dL (6.0-8.3); Sodium 138 mmol/L (136-145)
[2024-07-27 07:03] LABS: #Basophils 0.04 10x3/uL (0.0-0.2); %Basophils 0.5 % (0.0-1.0); %Lymphocytes 37.1 % (21.0-51.0); %Monocytes 12.1 % (0.0-10.0); Hematocrit 29.9 % (42.0-52.0); Hemoglobin 8.8 g/dL (14.0-18.0); Mean Corpuscular HGB CONC 29.4 g/dL (32.0-36.0); Mean Corpuscular Hemoglobin 22.1 pg (27.0-31.0); Mean Corpuscular Volume 75.1 fL (78.0-98.0); Mean Platelet Volume 8.2 fL (7.4-10.4); Platelet Count 599 10x3/uL (130-400); RBC Distribution Width 21.6 % (11.5-14.5); Red Blood Cell (RBC) Count 3.98 mill/uL (4.70-6.10)
[2024-07-28 04:46] LABS: #Basophils 0.06 10x3/uL (0.0-0.2); %Basophils 0.7 % (0.0-1.0); %Eosinophils 7.4 % (0.0-10.0); %Lymphocytes 32.8 % (21.0-51.0); %Monocytes 11.8 % (0.0-10.0); Hematocrit 30.9 % (42.0-52.0); Hemoglobin 9.1 g/dL (14.0-18.0); Mean Corpuscular HGB CONC 29.4 g/dL (32.0-36.0); Mean Corpuscular Hemoglobin 21.5 pg (27.0-31.0); Mean Platelet Volume 8.8 fL (7.4-10.4); Platelet Count 619 10x3/uL (130-400); RBC Distribution Width 21.8 % (11.5-14.5); Red Blood Cell (RBC) Count 4.23 mill/uL (4.70-6.10)
[2024-07-29 06:14] LABS: #Basophils 0.05 10x3/uL (0.0-0.2); %Basophils 0.5 % (0.0-1.0); %Eosinophils 6.9 % (0.0-10.0); %Monocytes 12.1 % (0.0-10.0); %Neutrophils 55.1 % (42.0-75.0); Hematocrit 30.5 % (42.0-52.0); Hemoglobin 8.7 g/dL (14.0-18.0); Mean Corpuscular HGB CONC 28.5 g/dL (32.0-36.0); Mean Corpuscular Hemoglobin 21.8 pg (27.0-31.0); Mean Corpuscular Volume 76.3 fL (78.0-98.0); Mean Platelet Volume 8.7 fL (7.4-10.4); Platelet Count 527 10x3/uL (130-400); RBC Distribution Width 22.5 % (11.5-14.5)
[2024-07-29 06:41] LABS: Anisocytosis SLIGHT = 6-15 cells HPF (0-5); Hypochromia SLIGHT = 6-15 cells HPF (0-5); Microcytosis SLIGHT = 6-15 cells HPF (0-5); Platelet Adequacy Comment Platelets Increased; Polychromasia SLIGHT = 2-3 cells HPF (0-2)
[2024-07-30 06:17] LABS: #Basophils 0.06 10x3/uL (0.0-0.2); %Basophils 0.6 % (0.0-1.0); %Eosinophils 5.9 % (0.0-10.0); %Lymphocytes 24.1 % (21.0-51.0); %Monocytes 13.4 % (0.0-10.0); %Neutrophils 55.8 % (42.0-75.0); Hematocrit 28.6 % (42.0-52.0); Hemoglobin 8.4 g/dL (14.0-18.0); Mean Corpuscular HGB CONC 29.4 g/dL (32.0-36.0); Mean Corpuscular Hemoglobin 21.8 pg (27.0-31.0); Mean Corpuscular Volume 74.3 fL (78.0-98.0); Mean Platelet Volume 9.2 fL (7.4-10.4); Platelet Count 518 10x3/uL (130-400); RBC Distribution Width 22.3 % (11.5-14.5); Red Blood Cell (RBC) Count 3.85 mill/uL (4.70-6.10)
[2024-07-30 08:42] VITALS: BP 118/80; TEMP 97.7
== END 2024-07-30 14:05 | DRG 871 ==
LOC: ERS 14:09 → T4-B 18:01 → OBSVTOIN 07-18 13:24
PROVIDERS: ADMIT Family Medicine; ATTEND Family Medicine
PROC: 3E03329 Introduction of Other Anti-infective into Peripheral Vein, Percutaneous Approach (ICD-10-PCS; 2024-07-17)
PROC: 02HV33Z Insertion of Infusion Device into Superior Vena Cava, Percutaneous Approach (ICD-10-PCS; principal; 2024-07-24)
DX: A41.51 Sepsis due to Escherichia coli [E. coli] (principal); G93.41 Metabolic encephalopathy; L89.154 Pressure ulcer of sacral region, stage 4; T83.510A Infection and inflammatory reaction due to cystostomy catheter, initial encounter; G82.20 Paraplegia, unspecified; N39.0 Urinary tract infection, site not specified; M86.68 Other chronic osteomyelitis, other site; E44.1 Mild protein-calorie malnutrition; Z68.1 Body mass index [BMI] 19.9 or less, adult; D50.9 Iron deficiency anemia, unspecified; I10 Essential (primary) hypertension; F41.9 Anxiety disorder, unspecified; F32.A Depression, unspecified; Z91.041 Radiographic dye allergy status; N31.9 Neuromuscular dysfunction of bladder, unspecified; Z79.01 Long term (current) use of anticoagulants; Z88.2 Allergy status to sulfonamides; E11.51 Type 2 diabetes mellitus with diabetic peripheral angiopathy without gangrene
CPT/HCPCS: 36415; 36416; 36569; 72170; 72193; 76937; 77001; 80053; 80202; 80306; 80307; 81001; 82140; 82565; 83605; 84436; 84443; 84484; 85025; 86141; 87040; 87070; 87077; 87086; 87186; 87205; 93005; 96374; 96375; 96376; 97139; C1751; G0378; J0692; J0696; J1650; J3370; J3370-JW; J7120; J7512; Q9967